=== PATIENT | female | born 1950 | race Caucasian/White ===

== ENCOUNTER 2018-11-17 10:39 | Emergency (ER) | payer OTHER ==
--- OUTSIDE RECORDS SUMMARY | 2018-11-17 10:41 | XMS REPORT | Clinical Summary ---
:1950 Author Organization [facility] Address [address] [place] [address] Care Team Providers Name Role Phone Dell Vazquez MD Primary Care Provider Allergies No Known Allergies Medications Medication Sig Dispensed Refills Start Date End Date Status ARMOUR THYROID TAKE 1 TABLET 1 11/06/2015 Active 60 mg tablet BY MOUTH EVERY DAY BEFORE BREAKFAST sitaGLIPtin-metf Take 1 tablet 0 Active ormin (JANUMET by mouth daily. XR) 100-1,000 mg tablet, ER multiphase 24 hr ramipril Take 2.5 mg by 0 Active (ALTACE) 2.5 MG mouth daily. capsule ONETOUCH VERIO 0 11/25/2015 Discontinued strip test 9 (Discontinued by strips another clinician) Active Problems No known active problems Encounters Date Type Specialty Care Team Description 08/25/2018 Surgery Gastroenterology Augie Hubbardw/sergio Waldron MD removal 08/25/2018 Anesthesia Event Gastroenterology Ruma Morel MD 08/25/2018 Hospital Encounter Gastroenterology Augie Hubbard MD after 11/16/2017 Family History Medical History Relation Name Comments Cancer Father Johnny cullen colon cancer Osteoporosis Mother Bella cullen Relation Name Status Comments Father Johnny cullen Mother Bella cullen Social History Tobacco Use Types Packs/Day Years Used Date Never Smoker Smokeless Tobacco: Never Used Alcohol Use Drinks/Week oz/Week Comments No Sex Assigned at Date Recorded Not on file Job Start Date Occupation Industry Not on file Not on file Not on file Travel History Travel Start Travel End No recent travel history available. Last Filed Vital Signs Vital Sign Reading Time Taken Comments Blood Pressure 136/63 08/25/2018 9:45 AM CDT Pulse 60 08/25/2018 9:45 AM CDT Temperature 36.7 C (98 F) 08/25/2018 9:45 AM CDT Respiratory Rate 18 08/25/2018 9:45 AM CDT Oxygen Saturation 99% 08/25/2018 9:45 AM CDT Inhaled Oxygen Concentration - - Weight - - Height 162.6 cm (5' 4") 08/25/2018 8:01 AM CDT Body Mass Index - - Plan of Treatment Health Maintenance Due Date Last Done Comments BREAST CANCER SCREENING 2002 COLONOSCOPY SCREENING 2002 SHINGLES VACCINES (#1) 2002 65+ PNEUMOCOCCAL VACCINE (1 of 2 - PCV13) 2017 INFLUENZA VACCINE 10/06/2018 Procedures Procedure Name Priority Date/Time Associated Comments Diagnosis SURGICAL PATHOLOGY Routine 08/25/2018 11:15 Results for this REQUEST AM CDT procedure are in the results section. POC GLUCOSE Routine 08/25/2018 9:24 Results for this AM CDT procedure are in the results section. COLONOSCOPY 08/25/2018 8:55 Special screening AM CDT for malignant neoplasms, colon POC GLUCOSE Routine 08/25/2018 8:14 Results for this AM CDT procedure are in the results section. after 11/16/2017 Results Surgical pathology request (08/25/2018 11:15 AM CDT) [facility] DEPARTMENT OF PATHOLOGY AND GENOMIC MEDICINE Surgical pathology See link below [facility] DEPARTMENT OF report for PDF Lab PATHOLOGY AND Report GENOMIC MEDICINE Result status This is Final [facility] DEPARTMENT OF Report for PATHOLOGY AND [id number] GENOMIC MEDICINE Specimen Performing Organization Address City/[facility] Phone Number [facility] DEPARTMENT OF PATHOLOGY AND [address] [place] [id number] GENOMIC MEDICINE POC glucose (08/25/2018 9:24 AM CDT)Only the most recent of2 resultswithin the time period is included. 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
--- NOTE | 2018-11-17 14:36 | RAD REPORT ---
EXAM DESCRIPTION: US - Abdomen Exam Limited - 11/17/2018 2:29 pm CLINICAL HISTORY: ABD PAIN COMPARISON: No comparisons FINDINGS: The gallbladder demonstrates no gallstones. No pericholecystic fluid or gallbladder wall t hickening. The common bile duct is normal measuring 5 mm. The liver demonstrates no findings of intrahepatic biliary dilatation. IMPRESSION: Unremarkable examination.
[2018-11-17 15:06] LABS: Basophils % 0.7 % (0-1.3); Hematocrit 43.4 % (36.0-45.0); Lymphocytes % 30.8 % (15.3-44.8)
[2018-11-17 15:18] LABS: Urine Blood NEGATIVE (NEG); Urine Glucose NEGATIVE (NEG); Urine Protein NEGATIVE (NEG)
--- NOTE | 2018-11-17 15:19 | RAD REPORT ---
EXAM DESCRIPTION: CT - Stone Protocol - 11/17/2018 2:49 pm CLINICAL HISTORY: Abdominal pain. Right flank pain COMPARISON: None. TECHNIQUE: Computed axial tomography of the abdomen pelvis was obtained without oral or IV contrast. Lack of IV and oral contrast limits evaluation of solid organs, bowel, and vessels. Coronal reformat esteban images were obtained and reviewed. All CT scans are performed using dose optimization technique as appropriate and may include automated exposure control or mA/KV adjustment according to patient size. FINDINGS: Moderate right hydronephrosis. A renal calculus is not seen. A 9 millimeter calculus proxi mal right ureter Hounsfield unit 1430. The liver appears grossly normal Splenic granulomata Pancreas and adrenals appear grossly normal There is no evidence of diverticulitis. The appendix appears normal Disc space narrowing and vacuum phenomena at L5-S1. Minimal posterior subluxation L5 on S1 with osteo phytes subchondral sclerosis involving the vertebral endplates Small umbilical hernia 12 millimeter lucency with a sclerotic border within the left ilium likely benign A small left posterior diaphragmatic hernia contains fat IMPRESSION: 9 millimeter calculus proximal right ureter resulting in moderate right hydronephrosis
[2018-11-17 15:37] LABS: Albumin 4.4 g/dL (3.4-5.0); Bilirubin Direct 0.1 mg/dL (0-0.2); Bilirubin Total 0.5 mg/dL (0.2-1.0); Potassium 3.7 mmol/L (3.5-5.1)
[2018-11-17] MEDS ORDERED: TAMSULOSIN 0.4 MG SR CAP ONE (15:56)
[2018-11-17] MEDS ORDERED: KETOROLAC 30 MG/ML INJ ONE (15:56)
[2018-11-17] MEDS ORDERED: MAGNESIUM SULFATE 1 gm IVPB 1 GM/100 ML BAG IV ONE (15:56)
[2018-11-17] MEDS ORDERED: CEFTRIAXONE/SWI 1gm 1 GM/10 ML SYR ONE (16:39)
--- NOTE | 2018-11-17 16:49 | ER ---
Nurse's Notes [facility] Name: Joana Garcia Age: 68 yrs Sex: Female : 1950 Arrival Date: 11/17/2018 Time: 10:41 Bed 30 Private MD: Olivia Vazquez C Diagnosis: Calculus of ureter-right Presentation: 11/17 11:05 Presenting complaint: Patient states: pain in right side, under ribs, 2 nights ago was iw severe, not as bad now, denies n/v, no fever. Transition of care: patient was not received from another setting of care. Onset of symptoms was November 13, 2018. Risk Assessment: Do you want to hurt yourself or someone else? Patient reports no desire to harm self or others. Initial Sepsis Screen: Does the patient meet any 2 criteria? No. Patient's initial sepsis screen is negative. Does the patient have a suspected source of infection? No. Patient's initial sepsis screen is negative. Care prior to arrival: None. 11:05 Method Of Arrival: Ambulatory iw 11:05 Acuity: CAIO 3 iw Historical: - Allergies: 11:07 No Known Allergies; iw - Home Meds: 11:07 levothyroxine oral [Active]; Janumet oral oral [Active]; Ramipril Oral [Active]; iw - PMHx: 11:07 Hypothyroidism; Hypertension; Diabetes - NIDDM; iw - PSHx: 11:07 Hysterectomy; rectal sphincter; cystocele; Hernia repair; iw - Immunization history:: Adult Immunizations Adult Immunizations not up to date. - Social history:: Smoking status: Patient/guardian denies using tobacco. - Ebola Screening: : Patient negative for fever greater than or equal to 101.5 degrees Fahrenheit, and additional compatible Ebola Virus Disease symptoms Patient denies exposure to infectious person Patient denies travel to an Ebola-affected area in the 21 days before illness onset No symptoms or risks identified at this time. Screenin:35 Abuse screen: Denies threats or abuse. Nutritional screening: No deficits noted. tr5 Tuberculosis screening: No symptoms or risk factors identified. Fall Risk None identified. Assessment: 14:35 General: Appears uncomfortable, Behavior is calm, cooperative, appropriate for age. tr5 Pain: Complains of pain in right lower quadrant Pain radiates to right low back Pain currently is 3 out of 10 on a pain scale. Quality of pain is described as aching, shooting, Pain began 1 day ago. Neuro: Level of Consciousness is awake, alert, obeys commands, Oriented to person, place, time, Director Information are equal bilaterally Moves all extremities. Cardiovascular: Heart tones present Capillary refill < 3 seconds. Respiratory: Airway is patent Respiratory effort is even, unlabored, Respiratory pattern is regular, symmetrical. GI: Bowel sounds present X 4 quads. Abd is soft Abdomen is tender to palpation in right lower quadrant. : No signs and/or symptoms were reported regarding the genitourinary system. EENT: No signs and/or symptoms were reported regarding the EENT system. Derm: No signs and/or symptoms reported regarding the dermatologic system. Skin is intact, Skin is dry, Skin is normal. Musculoskeletal: Capillary refill < 3 seconds, Range of motion: intact in all extremities, 15:00 Reassessment: Patient appears in no apparent distress at this time. Patient and/or tr5 family updated on plan of care and expected duration. Pain level reassessed. Patient is alert, oriented x 3, equal unlabored respirations, skin warm/dry/pink. 16:08 Reassessment: Patient and/or family updated on plan of care and expected duration. Pain tr5 level reassessed. Patient is alert, oriented x 3, equal unlabored respirations, skin warm/dry/pink. Pt sitting in bed watching tv. 17:00 Reassessment: Patient appears in no apparent distress at this time. Patient and/or tr5 family updated on plan of care and expected duration. Pain level reassessed. Patient is alert, oriented x 3, equal unlabored respirations, skin warm/dry/pink. Patient states feeling better. Vital Signs: 11:08 BP 149 / 67; Pulse 72; Resp 16; Temp 98.2; Pulse Ox 98% on R/A; Weight 83.46 kg; Height iw 5 ft. 3 in. (160.02 cm); Pain 3/10; 14:30 BP 136 / 76; Pulse 76; Resp 15; Pulse Ox 99% on R/A; tr5 15:30 BP 138 / 70; Pulse 70; Resp 16; Pulse Ox 100% on R/A; tr5 16:32 BP 140 / 70; Pulse 78; Resp 15; Pulse Ox 99% on R/A; tr5 11:08 Body Mass Index 32.59 (83.46 kg, 160.02 cm) iw ED Course: 10:41 Patient arrived in ED. as 10:41 Olivia Vazquez MD is Private Physician. as 11:06 Triage completed. iw 11:08 Arm band placed on. iw 13:50 Greg Grimes PA is PHCP. cp 13:50 Louann Layton MD is Attending Physician. cp 14:12 Mathew Nails RN is Primary Nurse. tr5 14:30 Inserted saline lock: 20 gauge in right antecubital area, using aseptic technique. tr5 14:31 US Abdomen Limited In Process Unspecified. EDMS 14:35 Bed in low position. Call light in reach. Side rails up X 1. tr5 14:39 Initial lab(s) drawn, by me, sent to lab. tr5 14:[address] via wheelchair. tr5 14:49 CT Stone Protocol In Process Unspecified. EDMS 16:48 Jerri Luz MD is Referral Physician. cp 17:33 XRAY KUB In Process Unspecified. EDMS 17:54 No provider procedures requiring assistance completed. IV discontinued. tr5 Administered Medications: 16:07 Drug: Flomax 0.4 mg Route: PO; tr5 17:03 Follow up: Response: No adverse reaction tr5 16:07 Drug: TORadol - Ketorolac 15 mg Route: IVP; Site: right antecubital; tr5 17:04 Follow up: Response: Pain is decreased tr5 16:08 Drug: Magnesium Sulfate 1 grams Route: IVPB; Infused Over: 1 hrs; Site: right tr5 antecubital; 17:04 Follow up: Response: No adverse reaction; IV Status: Completed infusion; IV Intake: tr5 100ml 17:01 Drug: Rocephin 1 grams Route: IV; Rate: bolus; Site: right antecubital; tr5 Intake: 17:04 IV: 100ml; Total: 100ml. tr5 Outcome: 16:49 Discharge ordered by . cp 17:54 Discharged to home ambulatory. tr5 17:54 Condition: stable 17:54 Discharge instructions given to patient, Instructed on discharge instructions, follow up and referral plans. medication usage, Demonstrated understanding of instructions, follow-up care, medications, Prescriptions given X 4. 17:54 Patient left the ED. tr5 Signatures: Dispatcher [employer] Harika Fonseca Irene, RN RN Greg Day PA PA cp Rodriguez, Tommie, RN RN tr5
--- NOTE | 2018-11-17 16:49 | EDPHYS ---
Physician Documentation [facility] Name: Joana Garcia Age: 68 yrs Sex: Female : 1950 Arrival Date: 11/17/2018 Time: 10:41 Bed 30 Private MD: Olivia Vazquez C ED Physician Louann Layton HPI: 11/17 14:10 This 68 yrs old Female presents to ER via Ambulatory with complaints of cp Abdominal Pain. 14:10 The patient complains of pain in the right flank. The pain radiates to the right low cp back. 14:10 Onset: The symptoms/episode began/occurred 2 day(s) ago. Associated signs and symptoms: cp Pertinent negatives: diarrhea, dysuria, fever, pain radiating to the lower extremities, vomiting. Severity of pain: in the emergency department the pain has improved moderately. Historical: - Allergies: 11:07 No Known Allergies; iw - Home Meds: 11:07 levothyroxine oral [Active]; Janumet oral oral [Active]; Ramipril Oral [Active]; iw - PMHx: 11:07 Hypothyroidism; Hypertension; Diabetes - NIDDM; iw - PSHx: 11:07 Hysterectomy; rectal sphincter; cystocele; Hernia repair; iw - Immunization history:: Adult Immunizations Adult Immunizations not up to date. - Social history:: Smoking status: Patient/guardian denies using tobacco. - Ebola Screening: : Patient negative for fever greater than or equal to 101.5 degrees Fahrenheit, and additional compatible Ebola Virus Disease symptoms Patient denies exposure to infectious person Patient denies travel to an Ebola-affected area in the 21 days before illness onset No symptoms or risks identified at this time. ROS: 14:15 Constitutional: Negative for body aches, chills, fever, poor PO intake. cp 14:15 Eyes: Negative for injury, pain, redness, and discharge. cp 14:15 ENT: Negative for drainage from ear(s), ear pain, sore throat, difficulty swallowing, difficulty handling secretions. 14:15 Cardiovascular: Negative for chest pain, palpitations. 14:15 Respiratory: Negative for cough, shortness of breath, wheezing. 14:15 Abdomen/GI: Positive for abdominal pain, of the right lower quadrant, Negative for vomiting, diarrhea, constipation, black/tarry stool, rectal bleeding. 14:15 Back: Positive for radiated pain, of the right low back. 14:15 : Positive for flank pain, Negative for urinary symptoms. 14:15 Skin: Negative for rash. 14:15 Neuro: Negative for altered mental status, headache, weakness. 14:15 All other systems are negative. Exam: 14:20 Constitutional: The patient appears in no acute distress, alert, awake, non-toxic, well cp developed, well nourished. 14:20 Head/Face: Normocephalic, atraumatic. cp 14:20 Eyes: Periorbital structures: appear normal, Conjunctiva: normal, no exudate, no cp injection, Sclera: no appreciated abnormality, Lids and lashes: appear normal, bilaterally. 14:20 ENT: External ear(s): are unremarkable, Nose: is normal, Mouth: Lips: moist, Oral mucosa: pink and intact, moist, Posterior pharynx: is normal, airway is patent, no erythema, no exudate. 14:20 Chest/axilla: Inspection: normal, Palpation: is normal, no crepitus, no tenderness. 14:20 Cardiovascular: Rate: normal, Rhythm: regular, Edema: is not appreciated, JVD: is not appreciated. 14:20 Respiratory: the patient does not display signs of respiratory distress, Respirations: normal, no use of accessory muscles, no retractions, no splinting, no tachypnea, labored breathing, is not present, Breath sounds: are clear throughout, no decreased breath sounds, no stridor, no wheezing. 14:20 Abdomen/GI: Inspection: abdomen appears normal, Bowel sounds: active, all quadrants, Palpation: soft, in all quadrants, mild abdominal tenderness, in the anterior aspect of right lateral abdomen and right lower quadrant, rebound tenderness, is not appreciated, voluntary guarding, is not appreciated, involuntary guarding, is not appreciated. 14:20 Back: pain, that is mild, of the right low back, ROM is normal, CVA tenderness, is absent. 14:20 Skin: no rash present. Vital Signs: 11:08 BP 149 / 67; Pulse 72; Resp 16; Temp 98.2; Pulse Ox 98% on R/A; Weight 83.46 kg; Height iw 5 ft. 3 in. (160.02 cm); Pain 3/10; 14:30 BP 136 / 76; Pulse 76; Resp 15; Pulse Ox 99% on R/A; tr5 15:30 BP 138 / 70; Pulse 70; Resp 16; Pulse Ox 100% on R/A; tr5 16:32 BP 140 / 70; Pulse 78; Resp 15; Pulse Ox 99% on R/A; tr5 11:08 Body Mass Index 32.59 (83.46 kg, 160.02 cm) iw MDM: 13:58 Patient medically screened. cp 16:00 Differential diagnosis: nephrolithiasis, pyelonephritis, UTI, diverticulitis, cp appendicitis, colitis. 16:30 Physician consultation: Jerri Luz MD was called at 16:00, was contacted at 16:30, regarding consult, patient's condition, and will see patient in office, tomorrow, wants KUB xray for follow-up visit tomorrow. 16:48 Data reviewed: vital signs, nurses notes, lab test result(s), radiologic studies, CT cp scan, and as a result, I will discharge patient. 16:48 Counseling: I had a detailed discussion with the patient and/or guardian regarding: the cp historical points, exam findings, and any diagnostic results supporting the discharge/admit diagnosis, lab results, radiology results, the need for outpatient follow up, for definitive care, a urologist. 16:48 Response to treatment: the patient's symptoms have markedly improved after treatment, cp and as a result, I will discharge patient. 11/17 13:58 Order name: Basic Metabolic Panel; Complete Time: 15:47 cp 11/17 13:58 Order name: CBC with Diff; Complete Time: 15:23 11/17 15:23 Interpretation: Normal except: RBC 4.90. 11/17 13:58 Order name: Creatinine for Radiology; Complete Time: 15:47 cp 11/17 13:58 Order name: Hepatic Function; Complete Time: 15:47 cp 11/17 13:58 Order name: Lipase; Complete Time: 15:47 cp 11/17 13:59 Order name: Urine Microscopic Only; Complete Time: 17:43 cp 11/17 17:44 Interpretation: Reviewed. 11/17 13:35 Order name: US Abdomen Limited; Complete Time: 15:23 snw 11/17 14:31 Order name: CT Stone Protocol; Complete Time: 15:23 cp 11/17 15:24 Interpretation: Report reviewed. 11/17 14:59 Order name: Urine Dipstick--Ancillary (enter results); Complete Time: 15:23 bd 11/17 16:28 Order name: Urine Culture 11/17 16:28 Order name: XRAY KUB 11/17 13:58 Order name: IV Saline Lock; Complete Time: 14:47 cp 11/17 13:58 Order name: Labs collected and sent; Complete Time: 14:47 11/17 13:59 Order name: Urine Dipstick-Ancillary (obtain specimen); Complete Time: 14:47 cp Administered Medications: 16:07 Drug: Flomax 0.4 mg Route: PO; tr5 17:03 Follow up: Response: No adverse reaction tr5 16:07 Drug: TORadol - Ketorolac 15 mg Route: IVP; Site: right antecubital; tr5 17:04 Follow up: Response: Pain is decreased tr5 16:08 Drug: Magnesium Sulfate 1 grams Route: IVPB; Infused Over: 1 hrs; Site: right tr5 antecubital; 17:04 Follow up: Response: No adverse reaction; IV Status: Completed infusion; IV Intake: tr5 100ml 17:01 Drug: Rocephin 1 grams Route: IV; Rate: bolus; Site: right antecubital; tr5 Disposition: 18:44 Co-signature as Attending Physician, Louann Layton MD. ma2 Disposition: 11/17/18 16:49 Discharged to Home. Impression: Calculus of ureter - right. - Condition is Stable. - Discharge Instructions: Kidney Stones. - Prescriptions for Tylenol- Codeine #3 300-30 mg Oral Tablet - take 2 tablets by ORAL route every 6 hours As needed; 15 tablet. Zofran 4 mg Oral Tablet - take 1 tablet by ORAL route every 12 hours As needed; 20 tablet. Flomax 0.4 mg Oral Capsule, Sust. Release 24 hr - take 1 capsule by ORAL route once daily 1/2 hour following the same meal each day; 5 capsule. Cipro 500 mg Oral Tablet - take 1 tablet by ORAL route every 12 hours for 7 days; 14 tablet. - Medication Reconciliation Form, Thank You Letter, Antibiotic Education, Prescription Opioid Use form. - Follow up: Jerri Luz MD; When: at 0800; Reason: Recheck today's complaints. - Problem is new. - Symptoms have improved. Signatures: Dispatcher [employer] Adenike Glez RN RN Greg Day PA PA cp Alzahri, Mohammad, MD MD ma2 Mathew Nails RN RN tr5 Corrections: (The following items were deleted from the chart) 17:54 16:49 11/17/2018 16:49 Discharged to Home. Impression: Calculus of ureter - right. tr5 Condition is Stable. Forms are Medication Reconciliation Form, Thank You Letter, Antibiotic Education, Prescription Opioid Use. Follow up: Jerri Luz; When: at 0800; Reason: Recheck today's complaints. Problem is new. Symptoms have improved. cp
[2018-11-17 17:29] LABS: Urine Bacteria <20 /HPF (<20); Urine Culture Reflex Order NOT NEEDED; Urine RBC <5 /HPF (NONE SEEN)
--- NOTE | 2018-11-17 18:08 | RAD REPORT ---
EXAM DESCRIPTION: RAD - Abdomen 1 View (KUB) - 11/17/2018 5:29 pm CLINICAL HISTORY: Abdomen pain. FINDINGS: The bowel gas pattern is unremarkable. 9 millimeter calculus lies within the proximal to mid right ureter at the L3-4 level
[2018-11-17 18:18] VITALS: TEMP 98.2
[2018-11-17 18:22] VITALS: BP 140/70; O2SAT 99
== END 2018-11-17 17:54 | disposition home or self-care (01) ==
LOC: ER 10:39
DX: N20.0 Calculus of kidney (principal); E03.9 Hypothyroidism, unspecified; E11.9 Type 2 diabetes mellitus without complications; I10 Essential (primary) hypertension
CPT/HCPCS: 96365; 87088; 85025; 80048; 36415; 80076; 83690; 76377; 74176; 74018; 76705; 96375; 99284; J3475; J0696; 81003; 81015; 87086

== ENCOUNTER 2022-06-09 18:41 | Observation (INO) | payer OTHER ==
[~2022-06-09 18:41] MED LIST: REGADENOSON 0.4 MG/5 ML SYR IV ONE
--- OUTSIDE RECORDS SUMMARY | 2022-06-09 18:46 | XMS REPORT | Continuity of Care Document ---
:1950 Author Organization [facility] t Address [address] [place] [address] [place] [id number] Care Team Providers Name Role Phone Dell Vazquez Get Primary Care Physician Haritha Attending Clinician Unavailable GT_Get Attending Clinician Unavailable aHrsh Attending Clinician Unavailable Biju Attending Clinician Unavailable Kg Ibrahim MD Attending Clinician CATHERINE DOMÍNGUEZ Attending Clinician Unavailable Deepak Meraz Attending Clinician [phone] Juan Attending Clinician Unavailable Augie Hubbard MD Attending Clinician JENNIFER MATHEWS Attending Clinician Unavailable [facility] Attending Clinician Unavailable Lor Fay RN Attending Clinician Unavailable Dexter Rocha PA-C Attending Clinician DEXTER ROCHA Attending Clinician Unavailable Haritha Admitting Clinician Unavailable SISSON_Get Admitting Clinician Unavailable Harsh Admitting Clinician Unavailable Biju Admitting Clinician Unavailable Juan Admitting Clinician Unavailable Payers Payer Name Policy Type Policy Number Effective Date Expiration Date Brendon griffith [facility] [id number] 2018 00:00:00 [facility] [id number] 2018 HEALTHCARE (O) 00:00:00 [facility] [id number] [facility] [id number] 2022 (PPO) 00:00:00 [facility] [id number] 2013 SERVICES - [place] 00:00:00 HEALTHCARE OPTIONS (PPO) [facility] [id number] SERVICES - [facility] (PPO) Problems Condition Condition Condition Status Onset Resolution Last Treating Co mments Source Name Details Category Date Date Treatment Clinician Date Osteoarthr Osteoarthr Problem Active Olivia willis itis of itis of 1-20 [facility] right knee Right Knee 00:00: di c joint Joint 00 Sports Medicin e Trochanter Trochanter Problem Active A linlea ic ic 1-19 Orthope bursitis Bursitis 00:00: dic of right of Right 00 Sports hip Hip Medicin e Pain of Pain of Problem Active [facility] right knee Right Knee 1-19 Or thope joint Joint 00:00: dic 00 Sports Medicin e Pain in Pain in Problem Active [facility] pelvis Pelvis 1-19 Orthope 00:00: dic 00 Sports Medicin e Type 2 Type 2 Problem Active [facility] diabetes Diabetes 5-20 Family mellitus Mellitus 00:00: Practi c 00 e Body mass Body Mass Problem Active Susie diane index 30+ Index 30+ 5-20 Fami ly - obesity - Obesity 00:00: Prac tic 00 e Essential Essential Problem Active Susie valdiviae hypertensi Hypertensi 1-21 Fa angel on on 00:00: Practic 00 e Hypertensi Hypertensi Problem Active [facility] ve ve 1-21 Family disorder Disorder 00:00: Practi c 00 e Hypocalcem Hypocalcem Problem Active [facility] ia ia 8 Family 00:00: Practic 00 e Leukopenia Leukopenia Problem Active [facility] 8-28 Family 00:00: Practic 00 e White White Problem Active [facility] blood cell Blood Cell 8-28 Fa angel number - Number - 00:00: Practi c finding Finding 00 e Obesity Obesity Problem Active [facility] 3-28 Family 00:00: Practic 00 e Clinical Clinical Problem Active Ferreira ge finding Finding 3-28 Family 00:00: Practic 00 e Hypothyroi Hypothyroi Problem Active [facility] dism dism 12-04 Family 00:00: Practic 00 e Type 2 Type 2 Problem Active [facility] diabetes Diabetes 12-04 Family mellitus Mellitus 00:00: Practi c without without 00 e complicati Complicati on on Hyperlipid Hyperlipid Problem Active [facility] emmonik emia 12-04 Family 00:00: Practic 00 e Clinical Clinical Problem Active Ferreira ge finding Finding 12-04 Family 00:00: Practic 00 e No known No known Disease [facility] active active Health problems problems Uterine Uterine Problem Active [facility] leiomyoma Leiomyoma [facility] Midline Midline Problem Active [facility] cystocele Cystocele [facility] Herniation Herniation Problem Active [facility] of rectum of Rectum Medi regis into into vagina Vagina Uterovagin Uterovagin Problem Active [facility] al al Medical prolapse Prolapse Female Female Problem Active [facility] stress Stress Medical incontinen Incontinen ce ce Incontinen Incontinen Problem Active [facility] ce of ce of Medical feces Feces Incomplete Incomplete Problem Active [facility] passage of Passage of Me dical stool Stool Dysuria Dysuria Problem Active [facility] Medical Allergies, Adverse Reactions, Alerts Allergy Allergy Status Severity Reaction(s) Onset Inactive Treating Comm ents Source Name Type Date Date Clinician Sulfa Allergy Active Hives [facility] Antibiot to 6-15 Health ics substanc 00:00: e 00 Sulfa Propensi Active Hives [facility] (Sulfona ty to 6-15 st mide adverse 00:00: Hospita Antibiot reaction 00 l ics) s to drug PAPER Allergy Active [facility] TAPE to 4-18 Orthope substanc 00:00: dic e 00 Sports Medicin e NO KNOWN Drug Active [facility] ALLERGIE Class ity of S [facility] Atorvast Allergy Active Arthralgia Susie diane atin to (joint pain) Fami ly substanc Practic e e Clindamy Allergy Active [facility] quentin to Family substanc Practic e e Predniso Allergy Active Moderate Rash Ferreira ge ne to Family substanc Practic e e SULFA Allergy Active [facility] (SULFONA to Family MIDE substanc Practic ANTIBIOT e e ICS) Family History Family Member Diagnosis Comments Start Date Stop Date Source Natural father Cancer [facility] Natural mother Osteoporosis [facility] Social History Social Habit Start Date Stop Date Quantity Comments Source History SDOH [facility] Alcohol Std Drinks History SDOH [facility] Alcohol Binge History SDOH [facility] Alcohol Comment Exposure to 2021-10-18 2021-10-28 Not sure [facility] SARS-CoV-2 00:00:00 12:28:00 (event) Tobacco use and 2021-05-08 2021-05-08 Smokeless tobacco [facility] exposure 00:00:00 00:00:00 non-user History [facility] 2021-05-08 2021-05-08 1 [facility] Alcohol Frequency 00:00:00 00:00:00 Alcohol intake 2018-08-26 2018-08-26 Current [facility] 00:00:00 00:00:00 non-drinker of Hospital alcohol (finding) Sex Ass[birth year] At [birth year] [facility] 00:00:00 00:00:00 Hospital Smoking Status Start Date Stop Date Source Never Smoker [facility] Medications Ordered Filled Start Stop Current Ordering Indication Dosage Frequency Signature Comments Components Source Medication Medication Date Date Medication? Clinician (SIG) Name Name amlodipine amlodipine No amlodipine [facility] 5 mg tablet 5 mg tablet 7-27 5 mg M edical TAKE 1 TAKE 1 00:00: tablet TABLET BY TABLET BY 00 TAKE 1 MOUTH MOUTH TABLET BY EVERYDAY AT EVERYDAY AT MOUTH BEDTIME BEDTIME EVERYDAY AT BEDTIME cevimeline cevimeline No cevimeline [facility] 30 mg 30 mg 7-27 30 mg Medical capsule capsule 00:00: capsule TAKE 1 TAKE 1 00 TAKE 1 CAPSULE BY CAPSULE BY CAPSULE BY MOUTH THREE MOUTH THREE MOUTH TIMES A DAY TIMES A DAY THREE TIMES A DAY Janumet XR Janumet XR No Janumet XR [facility] 100 100 7-27 100 Medical mg-1,000 mg mg-1,000 mg 00:00: mg-1,000 tablet,exte tablet,exte 00 mg nded nded tablet,ext release release ended TAKE 1 TAKE 1 release TABLET BY TABLET BY TAKE 1 MOUTH EVERY MOUTH EVERY TABLET BY DAY WITH DAY WITH MOUTH EVENING EVENING EVERY DAY MEAL MEAL WITH EVENING MEAL levothyroxi levothyroxi No levothyrox [facility] ne 75 mcg ne 75 mcg 7-27 ine 75 mcg Medical tablet TAKE tablet TAKE 00:00: tablet 1 TABLET BY 1 TABLET BY 00 TAKE 1 MOUTH EVERY MOUTH EVERY TABLET BY DAY DAY MOUTH EVERY DAY ramipril 10 ramipril 10 0 No ramipril [facility] mg capsule mg capsule 7-27 10 mg Me dical TAKE 1 TAKE 1 00:00: capsule CAPSULE BY CAPSULE BY 00 TAKE 1 MOUTH EVERY MOUTH EVERY CAPSULE BY DAY DAY MOUTH EVERY DAY rosuvastati rosuvastati 0 No rosuvastat [facility] n 5 mg n 5 mg 7-27 in 5 mg Medical tablet TAKE tablet TAKE 00:00: tablet 1 TABLET BY 1 TABLET BY 00 TAKE 1 MOUTH TWO MOUTH TWO TABLET BY TIMES A TIMES A MOUTH TWO WEEK. WEEK. TIMES A WEEK. ramipril 2021-0 Yes [facility] (Altace) 10 2-25 Health MG capsule 00:00: 00 pramipexole 2021-0 Yes [facility] (Mirapex) 2-25 Health 0.25 MG 00:00: tablet 00 ramipril 2021-0 Yes UT (Altace) 10 2-25 Health MG capsule 00:00: 00 pramipexole 2021-0 Yes [facility] (Mirapex) 2-25 Health 0.25 MG 00:00: tablet 00 ramipril 2021-0 Yes UT (Altace) 10 2-25 Health MG capsule 00:00: 00 pramipexole 2021-0 Yes UT (Mirapex) 2-25 Health 0.25 MG 00:00: tablet 00 ramipril 2021-0 Yes UT (Altace) 10 2-25 Health MG capsule 00:00: 00 pramipexole 2021-0 Yes UT (Mirapex) 2-25 Health 0.25 MG 00:00: tablet 00 Synjardy XR 2-0 Yes UT 25-1000 MG 2-23 Health 24 hr 00:00: tablet 00 Synjardy XR 2-0 Yes UT 25-1000 MG 2-23 Health 24 hr 00:00: tablet 00 Synjardy XR 2-0 Yes UT 25-1000 MG 2-23 Health 24 hr 00:00: tablet 00 Synjardy XR 2-0 Yes UT 25-1000 MG 2-23 Health 24 hr 00:00: tablet 00 amLODIPine 2021-0 Yes 5mg Take 5 mg [facility] (Norvasc) 5 1-27 by mouth Heal th MG tablet 00:00: every 00 night. amLODIPine 2021-0 Yes 5mg Take 5 mg UT (Norvasc) 5 1-27 by mouth Heal th MG tablet 00:00: every 00 night. amLODIPine 2-0 Yes 5mg Take 5 mg [facility] (Norvasc) 5 1-27 by mouth Heal th MG tablet 00:00: every 00 night. amLODIPine 2022-0 Yes 5mg Take 5 mg UT (Norvasc) 5 1-27 by mouth Heal th MG tablet 00:00: every 00 night. rosuvastati 2022-0 Yes 5mg Take 5 mg U T n (Crestor) 1-26 by mouth Heal th 5 MG tablet 00:00: every 00 night. rosuvastati 2022-0 Yes 5mg Take 5 mg U T n (Crestor) 1-26 by mouth Heal th 5 MG tablet 00:00: every 00 night. rosuvastati 2022-0 Yes 5mg Take 5 mg U T n (Crestor) 1-26 by mouth Heal th 5 MG tablet 00:00: every 00 night. rosuvastati 2022-0 Yes 5mg Take 5 mg U T n (Crestor) 1-26 by mouth Heal th 5 MG tablet 00:00: every 00 night. levothyroxi 202-0 Yes 75ug QD Take 75 UT ne 1-25 mcg by Health (Synthroid, 00:00: mouth 1 Levoxyl) 75 00 (one) time MCG tablet each day. levothyroxi 2021-0 Yes 75ug QD Take 75 UT ne 1-25 mcg by Health (Synthroid, 00:00: mouth 1 Levoxyl) 75 00 (one) time MCG tablet each day. levothyroxi 2022-0 Yes 75ug QD Take 75 UT ne 1-25 mcg by Health (Synthroid, 00:00: mouth 1 Levoxyl) 75 00 (one) time MCG tablet each day. levothyroxi 2-0 Yes 75ug QD Take 75 UT ne 1-25 mcg by Health (Synthroid, 00:00: mouth 1 Levoxyl) 75 00 (one) time MCG tablet each day. cevimeline 2020-03 Yes 30mg [id number] Take 30 mg UT (Evoxac) 30 1-28 [id number] by mouth 3 Health MG capsule 00:00: 3D (three) 00 times a day. cevimeline 2020-03 Yes 30mg [id number] Take 30 mg UT (Evoxac) 30 1- [id number] by mouth 3 Health MG capsule 00:00: 3D (three) 00 times a day. cevimeline 2020-03 Yes 30mg [id number] Take 30 mg UT (Evoxac) 30 1- [id number] by mouth 3 Health MG capsule 00:00: 3D (three) 00 times a day. cevimeline 2020-03 Yes 30mg [id number] Take 30 mg UT (Evoxac) 30 1- [id number] by mouth 3 Health MG capsule 00:00: 3D (three) 00 times a day. conjugated Yes Premarin [facility] estrogens 6-[address] (Premarin) 11:38: mg/gram [facility]osp [facility] 0.625 42 vaginal l mg/gram cream vaginal cream cevimeline Yes cevimeline M [facility]i (EVOXAC) 30 6-[address] mg capsule 11:38: capsule [facility]osp [facility] 41 l rosuvastati Yes rosuvastat [facility] n (CRESTOR) 6-[address] 5 mg tablet 11:38: tablet [facility]osp [facility] 41 TAKE 1 l TABLET BY MOUTH EVERYDAY AT BEDTIME ramipriL Yes ramipril Metho di (ALTACE) 10 6-[address] MG capsule 11:38: capsule [facility]osp [facility] 41 TAKE 1 l CAPSULE BY MOUTH EVERY DAY levoFLOXaci 2020- No levofloxac Univers n 750 mg 09-06 07-02 in 750 mg ity o f tablet 13:45: 00:00 tablet [place] 38 :00 TAKE 1 Medical TABLET BY Branch MOUTH EVERY 24 HOURS FOR 5 DAYS conjugated Yes Premarin Uni vers estrogens 7-02 0.625 ity of (PREMARIN) 13:28: mg/gram [place] 0.625 49 vaginal Medical mg/gram cream Branch vaginal cream ramipril Yes 2.5mg Take 2.5 Univ ers 2.5 mg 7-02 mg by ity of capsule 13:28: mouth. [place] 49 Medical Branch conjugated Yes Premarin Uni vers estrogens 7-02 0.625 ity of (PREMARIN) 13:28: mg/gram [place] 0.625 49 vaginal Medical mg/gram cream [place] vaginal cream ramipril 2019-0 Yes 2.5mg Take 2.5 Univ ers 2.5 mg 7-02 mg by ity of capsule 13:28: mouth. [address] conjugated 2019-0 Yes Premarin Uni vers estrogens 7-02 0.625 ity of (PREMARIN) 13:28: mg/gram [place] 0.625 49 vaginal Medical mg/gram cream [place] vaginal cream ramipril 2019-0 Yes 2.5mg Take 2.5 Univ ers 2.5 mg 7-02 mg by ity of capsule 13:28: mouth. [address] levothyroxi Yes 75ug Take 75 Uni vers ne 75 mcg 6-18 mcg by ity of tablet 00:00: mouth. [address] levothyroxi 0 Yes 75ug Take 75 Uni vers ne 75 mcg 6-18 mcg by ity of tablet 00:00: mouth. [address] levothyroxi Yes 75ug Take 75 Uni vers ne 75 mcg 6-18 mcg by ity of tablet 00:00: mouth. [address] levothyroxi Yes levothyrox [facility] ne 6-[address] (SYNTHROID) 00:00: tablet [facility]osp [facility] 75 mcg 00 TAKE 1 l tablet TABLET BY MOUTH EVERY DAY JANUMET XR 2019- Yes TAKE 1 Unive rs 100-1,000 4-25 TABLET BY ity o f mg per 00:00: MOUTH [place] tablet 00 EVERY DAY Medical WITH Branch EVENING MEAL JANUMET XR 2019- Yes TAKE 1 Unive rs 100-1,000 4-25 TABLET BY ity o f mg per 00:00: MOUTH [place] tablet 00 EVERY DAY Medical WITH Branch EVENING MEAL JANUMET XR 2019- Yes TAKE 1 Unive rs 100-1,000 4-25 TABLET BY ity o f mg per 00:00: MOUTH [place] tablet 00 EVERY DAY Medical WITH Branch EVENING MEAL SITagliptin Yes Janumet XR [facility] -metformin 4-[address] (Janumet 00:00: mg-1,000 Hospi ta XR) 00 mg l 100-1,000 tablet,ext mg tablet, ended ER release multiphase TAKE 1 24 hr TABLET BY MOUTH EVERY DAY sitaGLIPtin Yes 1{tbl} QD Take 1 Me thodi -metformin 6-[address] (MARUMET 10:10: mouth Hospita XR) 29 daily. l 100-1,000 mg tablet, ER multiphase 24 hr ramipril Yes 2.5mg QD Take 2.5 Meth randi (ALTACE) 6-[address] 2.5 MG 10:10: mouth Hospita capsule 29 daily. l etodolac ER etodolac ER No etodolac [facility] 400 mg 400 mg 3-06 ER 400 mg Orthop e tablet,exte tablet,exte 00:00: tablet,ext dic nded nded 00 ended Sports release 24 release 24 release 24 Medicin hr One PO hr One PO hr One PO e per day per day per day with food with food with food etodolac ER etodolac ER No etodolac [facility] 400 mg 400 mg 3-06 ER 400 mg Orthop e tablet,exte tablet,exte 00:00: tablet,ext dic nded nded 00 ended Sports release 24 release 24 release 24 Medicin hr One PO hr One PO hr One PO e per day per day per day with food with food with food ARMOUR Yes TAKE 1 [facility] THYROID 60 8-[address] mg tablet 00:00: MOUTH Hospita 00 EVERY DAY l BEFORE BREAKFAST pramipexole pramipexole No pramipexol [facility] 0.25 mg 0.25 mg e 0.25 mg Orth ope tablet TAKE tablet TAKE tablet dic 1 TABLET BY 1 TABLET BY TAKE 1 Sports MOUTH MOUTH TABLET BY Medicin EVERYDAY AT EVERYDAY AT MOUTH e BEDTIME BEDTIME EVERYDAY AT BEDTIME ramipril 10 ramipril 10 No ramipril [facility] mg capsule mg capsule 10 mg Or thope TAKE 1 TAKE 1 capsule dic CAPSULE BY CAPSULE BY TAKE 1 S ports MOUTH EVERY MOUTH EVERY CAPSULE BY Medicin DAY DAY MOUTH e EVERY DAY rosuvastati rosuvastati No rosuvastat [facility] n 5 mg n 5 mg in 5 mg Orthope tablet TAKE tablet TAKE tablet dic 1 TABLET BY 1 TABLET BY TAKE 1 Sports MOUTH TWO MOUTH TWO TABLET BY Medicin TIMES A TIMES A MOUTH TWO e WEEK. WEEK. TIMES A WEEK. Synjardy XR Synjardy XR No Synjardy [facility] 25 mg-1,000 25 mg-1,000 XR 25 Orthope mg tablet, mg tablet, mg-1,000 dic extended extended mg tablet, S ports release release extended Medic in TAKE 1 TAKE 1 release e TABLET BY TABLET BY TAKE 1 MOUTH EVERY MOUTH EVERY TABLET BY DAY IN THE DAY IN THE MOUTH MORNING MORNING EVERY DAY IN THE MORNING amlodipine amlodipine No amlodipine [facility] 5 mg tablet 5 mg tablet 5 mg O rthope TAKE 1 TAKE 1 tablet dic TABLET BY TABLET BY TAKE 1 Spo rts MOUTH MOUTH TABLET BY Medicin EVERYDAY AT EVERYDAY AT MOUTH e BEDTIME BEDTIME EVERYDAY AT BEDTIME amoxicillin amoxicillin No amoxicilli [facility] 500 mg 500 mg n 500 mg Orthope capsule capsule capsule dic TAKE 1 TAKE 1 TAKE 1 Sports CAPSULE BY CAPSULE BY CAPSULE BY Medicin MOUTH THREE MOUTH THREE MOUTH e TIMES A DAY TIMES A DAY THREE TIMES A DAY cefdinir cefdinir No cefdinir Aza veronica 300 mg 300 mg 300 mg Orthope capsule capsule capsule dic TAKE 1 TAKE 1 TAKE 1 Sports CAPSULE BY CAPSULE BY CAPSULE BY Medicin MOUTH EVERY MOUTH EVERY MOUTH e 12 HOURS 12 HOURS EVERY 12 FOR 10 DAYS FOR 10 DAYS HOURS FOR 10 DAYS clindamycin clindamycin No clindamyci [facility] HCl 300 mg HCl 300 mg n HCl 300 Orth[facility] capsule capsule mg capsule dic TAKE 1 TAKE 1 TAKE 1 Sports CAPSULE BY CAPSULE BY CAPSULE BY Medicin MOUTH EVERY MOUTH EVERY MOUTH e 8 HOURS FOR 8 HOURS FOR EVERY 8 7 DAYS 7 DAYS HOURS FOR 7 DAYS clotrimazol clotrimazol No clotrimazo [facility] e-betametha e-betametha le-betamet Orthope sone 1 sone 1 hasone 1 dic %-0.05 % %-0.05 % %-0.05 % Spo rts topical topical topical Medici n cream APPLY cream APPLY cream e TO AFFECTED TO AFFECTED APPLY TO AREA OF AREA OF AFFECTED SKIN TWO SKIN TWO AREA OF TIMES A DAY TIMES A DAY SKIN TWO FOR TWO FOR TWO TIMES A WEEKS WEEKS DAY FOR TWO WEEKS doxycycline doxycycline No doxycyclin [facility] hyclate 100 hyclate 100 e hyclate Orthope mg capsule mg capsule 100 mg d ic 1 CAPSULE 1 CAPSULE capsule 1 Sports ORALLY ORALLY CAPSULE Medicin TWICE DAILY TWICE DAILY ORALLY e 10 DAY(S) 10 DAY(S) TWICE DAILY 10 DAY(S) fluticasone fluticasone No fluticason [facility] propionate propionate e Ort hope 50 50 propionate dic mcg/actuati mcg/actuati 50 S ports on nasal on nasal mcg/actuat M edicin spray,suspe spray,suspe ion nasal e nsion 2 nsion 2 spray,susp SPRAYS IN SPRAYS IN ension 2 INTO EACH INTO EACH SPRAYS IN NOSTRIL NOSTRIL INTO EACH ONCE DAILY ONCE DAILY NOSTRIL ONCE DAILY Janumet 50 Janumet 50 No Janumet 50 [facility] mg-500 mg mg-500 mg mg-500 mg Orthope tablet RX tablet RX tablet RX dic by other MD by other MD by other Eusebia IQBAL Medicin e Janumet XR Janumet XR No Janumet XR [facility] 100 100 100 Orthope mg-1,000 mg mg-1,000 mg mg-1,000 dic tablet,exte tablet,exte mg S ports nded nded tablet,ext Medicin release release ended e TAKE 1 TAKE 1 release TABLET BY TABLET BY TAKE 1 MOUTH EVERY MOUTH EVERY TABLET BY DAY WITH DAY WITH MOUTH EVENING EVENING EVERY DAY MEAL MEAL WITH EVENING MEAL Levo-T 25 Levo-T 25 No Levo-T 25 [facility] mcg tablet mcg tablet mcg tablet Orthope RX by other RX by other RX by dic MD MD agustin Laws Medicin [place] levothyroxi levothyroxi No levothyrox [facility] ne 75 mcg ne 75 mcg ine 75 mcg Orthope tablet TAKE tablet TAKE tablet dic 1 TABLET BY 1 TABLET BY TAKE 1 Sports MOUTH EVERY MOUTH EVERY TABLET BY Medicin DAY DAY MOUTH e EVERY DAY meloxicam meloxicam No 1 Q1D meloxicam [facility] 15 mg 15 mg 15 mg [facility] tablet Take tablet Take tablet dic 1 tablet 1 tablet Take 1 Sport s every day every day tablet Med icin by oral by oral every day e route. route. by oral route. pramipexole pramipexole No pramipexol [facility] 0.25 mg 0.25 mg e 0.25 mg Orth ope tablet TAKE tablet TAKE tablet dic 1 TABLET BY 1 TABLET BY TAKE 1 Sports MOUTH MOUTH TABLET BY Medicin EVERYDAY AT EVERYDAY AT MOUTH e BEDTIME BEDTIME EVERYDAY AT BEDTIME QuickVue QuickVue No QuickVue Aza veronica At-Home At-Home At-Home Orthop e COVID-19 COVID-19 COVID-19 dic Test kit Test kit Test kit Spo rts USE USE USE Medicin DIRECTED DIRECTED DIRECTED e ramipril 10 ramipril 10 No ramipril [facility] mg capsule mg capsule 10 mg Or thope TAKE 1 TAKE 1 capsule dic CAPSULE BY CAPSULE BY TAKE 1 S ports MOUTH TWICE MOUTH TWICE CAPSULE BY Medicin A DAY A DAY MOUTH e TWICE A DAY rosuvastati rosuvastati No rosuvastat [facility] n 5 mg n 5 mg in 5 mg Orthope tablet TAKE tablet TAKE tablet dic 1 TABLET BY 1 TABLET BY TAKE 1 Sports MOUTH TWO MOUTH TWO TABLET BY Medicin TIMES A TIMES A MOUTH TWO e WEEK. WEEK. TIMES A WEEK. Synjardy XR Synjardy XR No Synjardy [facility] 25 mg-1,000 25 mg-1,000 XR 25 Orthope mg tablet, mg tablet, mg-1,000 dic extended extended mg tablet, S ports release release extended Medic in TAKE 1 TAKE 1 release e TABLET BY TABLET BY TAKE 1 MOUTH EVERY MOUTH EVERY TABLET BY DAY IN THE DAY IN THE MOUTH MORNING MORNING EVERY DAY IN THE MORNING Voltaren Voltaren No Voltaren Aza veronica Arthritis Arthritis Arthritis Orthope Pain 1 % Pain 1 % Pain 1 % dic topical gel topical gel topical Sports APPLY 2 APPLY 2 gel APPLY Medi quentin GRAMS TO GRAMS TO 2 GRAMS TO e THE THE THE AFFECTED AFFECTED AFFECTED AREA(S) BY AREA(S) BY AREA(S) BY TOPICAL TOPICAL TOPICAL ROUTE 4 ROUTE 4 ROUTE 4 TIMES PER TIMES PER TIMES PER DAY DAY DAY amlodipine amlodipine No amlodipine [facility] 5 mg tablet 5 mg tablet 5 mg O rthope TAKE 1 TAKE 1 tablet dic TABLET BY TABLET BY TAKE 1 Spo rts MOUTH MOUTH TABLET BY Medicin EVERYDAY AT EVERYDAY AT MOUTH e BEDTIME BEDTIME EVERYDAY AT BEDTIME amoxicillin amoxicillin No amoxicilli [facility] 500 mg 500 mg n 500 mg Orth[facility] capsule capsule capsule dic TAKE 1 TAKE 1 TAKE 1 Sports CAPSULE BY CAPSULE BY CAPSULE BY Medicin MOUTH THREE MOUTH THREE MOUTH e TIMES A DAY TIMES A DAY THREE TIMES A DAY cefdinir cefdinir No cefdinir Aza veronica 300 mg 300 mg 300 mg Orth[facility] capsule capsule capsule dic TAKE 1 TAKE 1 TAKE 1 Sports CAPSULE BY CAPSULE BY CAPSULE BY Medicin MOUTH EVERY MOUTH EVERY MOUTH e 12 HOURS 12 HOURS EVERY 12 FOR 10 DAYS FOR 10 DAYS HOURS FOR 10 DAYS clindamycin clindamycin No clindamyci [facility] HCl 300 mg HCl 300 mg n HCl 300 [facility] capsule capsule mg capsule dic TAKE 1 TAKE 1 TAKE 1 Sports CAPSULE BY CAPSULE BY CAPSULE BY Medicin MOUTH EVERY MOUTH EVERY MOUTH e 8 HOURS FOR 8 HOURS FOR EVERY 8 7 DAYS 7 DAYS HOURS FOR 7 DAYS clotrimazol clotrimazol No clotrimazo [facility] e-betametha e-betametha le-betamet Orthope sone 1 sone 1 hasone 1 dic %-0.05 % %-0.05 % %-0.05 % Spo rts topical topical topical Medici n cream APPLY cream APPLY cream e TO AFFECTED TO AFFECTED APPLY TO AREA OF AREA OF AFFECTED SKIN TWO SKIN TWO AREA OF TIMES A DAY TIMES A DAY SKIN TWO FOR TWO FOR TWO TIMES A WEEKS WEEKS DAY FOR TWO WEEKS doxycycline doxycycline No doxycyclin [facility] hyclate 100 hyclate 100 e hyclate Orthope mg capsule mg capsule 100 mg d ic 1 CAPSULE 1 CAPSULE capsule 1 Sports ORALLY ORALLY CAPSULE Medicin TWICE DAILY TWICE DAILY ORALLY e 10 DAY(S) 10 DAY(S) TWICE DAILY 10 DAY(S) fluticasone fluticasone No fluticason [facility] propionate propionate e Ort hope 50 50 propionate dic mcg/actuati mcg/actuati 50 S ports on nasal on nasal mcg/actuat M edicin spray,suspe spray,suspe ion nasal e nsion 2 nsion 2 spray,susp SPRAYS IN SPRAYS IN ension 2 INTO EACH INTO EACH SPRAYS IN NOSTRIL NOSTRIL INTO EACH ONCE DAILY ONCE DAILY NOSTRIL ONCE DAILY Janumet 50 Janumet 50 No Janumet 50 [facility] mg-500 mg mg-500 mg mg-500 mg [facility] tablet RX tablet RX tablet RX dic by other MD by other MD by other Sports MD Medicin e Janumet XR Janumet XR No Janumet XR [facility] 100 100 100 [facility]ope mg-1,000 mg mg-1,000 mg mg-1,000 dic tablet,exte tablet,exte mg S ports nded nded tablet,ext Medicin release release ended e TAKE 1 TAKE 1 release TABLET BY TABLET BY TAKE 1 MOUTH EVERY MOUTH EVERY TABLET BY DAY WITH DAY WITH MOUTH EVENING EVENING EVERY DAY MEAL MEAL WITH EVENING MEAL Levo-T 25 Levo-T 25 No Levo-T 25 [facility] mcg tablet mcg tablet mcg tablet Orthope RX by other RX by other RX by roger Laws Medicin e levothyroxi levothyroxi No levothyrox [facility] ne 75 mcg ne 75 mcg ine 75 mcg [facility] tablet TAKE tablet TAKE tablet dic 1 TABLET BY 1 TABLET BY TAKE 1 Sports MOUTH EVERY MOUTH EVERY TABLET BY Medicin DAY DAY MOUTH e EVERY DAY meloxicam meloxicam No 1 Q1D meloxicam [facility] 15 mg 15 mg 15 mg [facility] tablet Take tablet Take tablet dic 1 tablet 1 tablet Take 1 Sport s every day every day tablet Med icin by oral by oral every day e route. route. by oral route. pramipexole pramipexole No pramipexol [facility] 0.25 mg 0.25 mg e 0.25 mg Orth ope tablet TAKE tablet TAKE tablet dic 1 TABLET BY 1 TABLET BY TAKE 1 Sports MOUTH MOUTH TABLET BY Medicin EVERYDAY AT EVERYDAY AT MOUTH e BEDTIME BEDTIME EVERYDAY AT BEDTIME QuickVue QuickVue No QuickVue Aza veronica At-Home At-Home At-Home Orthop e COVID-19 COVID-19 COVID-19 dic Test kit Test kit Test kit Spo rts USE USE USE Medicin DIRECTED DIRECTED DIRECTED e ramipril 10 ramipril 10 No ramipril [facility] mg capsule mg capsule 10 mg Or thope TAKE 1 TAKE 1 capsule dic CAPSULE BY CAPSULE BY TAKE 1 S ports MOUTH TWICE MOUTH TWICE CAPSULE BY Medicin A DAY A DAY MOUTH e TWICE A DAY rosuvastati rosuvastati No rosuvastat [facility] n 5 mg n 5 mg in 5 mg [facility] tablet TAKE tablet TAKE tablet dic 1 TABLET BY 1 TABLET BY TAKE 1 Sports MOUTH TWO MOUTH TWO TABLET BY Medicin TIMES A TIMES A MOUTH TWO e WEEK. WEEK. TIMES A WEEK. Synjardy XR Synjardy XR No Synjardy [facility] 25 mg-1,000 25 mg-1,000 XR 25 [facility] mg tablet, mg tablet, mg-1,000 dic extended extended mg tablet, S ports release release extended Medic in TAKE 1 TAKE 1 release e TABLET BY TABLET BY TAKE 1 MOUTH EVERY MOUTH EVERY TABLET BY DAY IN THE DAY IN THE MOUTH MORNING MORNING EVERY DAY IN THE MORNING Voltaren Voltaren No Voltaren Aza veronica Arthritis Arthritis Arthritis [facility] Pain 1 % Pain 1 % Pain 1 % dic topical gel topical gel topical Sports APPLY 2 APPLY 2 gel APPLY Medi quentin GRAMS TO GRAMS TO 2 GRAMS TO e THE THE THE AFFECTED AFFECTED AFFECTED AREA(S) BY AREA(S) BY AREA(S) BY TOPICAL TOPICAL TOPICAL ROUTE 4 ROUTE 4 ROUTE 4 TIMES PER TIMES PER TIMES PER DAY DAY DAY amlodipine amlodipine No amlodipine [facility] 5 mg tablet 5 mg tablet 5 mg O rthope TAKE 1 TAKE 1 tablet dic TABLET BY TABLET BY TAKE 1 Spo rts MOUTH MOUTH TABLET BY Medicin EVERYDAY AT EVERYDAY AT MOUTH e BEDTIME BEDTIME EVERYDAY AT BEDTIME amoxicillin amoxicillin No amoxicilli [facility] 500 mg 500 mg n 500 mg [facility] capsule capsule capsule dic TAKE 1 TAKE 1 TAKE 1 Sports CAPSULE BY CAPSULE BY CAPSULE BY Medicin MOUTH THREE MOUTH THREE MOUTH e TIMES A DAY TIMES A DAY THREE TIMES A DAY cefdinir cefdinir No cefdinir Aza veronica 300 mg 300 mg 300 mg [facility] capsule capsule capsule dic TAKE 1 TAKE 1 TAKE 1 Sports CAPSULE BY CAPSULE BY CAPSULE BY Medicin MOUTH EVERY MOUTH EVERY MOUTH e 12 HOURS 12 HOURS EVERY 12 FOR 10 DAYS FOR 10 DAYS HOURS FOR 10 DAYS cetirizine cetirizine No cetirizine [facility] 10 mg 10 mg 10 mg [facility] tablet TAKE tablet TAKE tablet dic 1 TABLET BY 1 TABLET BY TAKE 1 Sports MOUTH EVERY MOUTH EVERY TABLET BY Medicin DAY DAY MOUTH e EVERY DAY clindamycin clindamycin No clindamyci [facility] HCl 300 mg HCl 300 mg n HCl 300 [facility] capsule capsule mg capsule dic TAKE 1 TAKE 1 TAKE 1 Sports CAPSULE BY CAPSULE BY CAPSULE BY Medicin MOUTH EVERY MOUTH EVERY MOUTH e 8 HOURS FOR 8 HOURS FOR EVERY 8 7 DAYS 7 DAYS HOURS FOR 7 DAYS clotrimazol clotrimazol No clotrimazo [facility] e-betametha e-betametha le-betamet [facility] sone 1 sone 1 hasone 1 dic %-0.05 % %-0.05 % %-0.05 % Spo rts topical topical topical Medici n cream APPLY cream APPLY cream e TO AFFECTED TO AFFECTED APPLY TO AREA OF AREA OF AFFECTED SKIN TWO SKIN TWO AREA OF TIMES A DAY TIMES A DAY SKIN TWO FOR TWO FOR TWO TIMES A WEEKS WEEKS DAY FOR TWO WEEKS diclofenac diclofenac No diclofenac [facility] 1 % topical 1 % topical 1 % O rthope gel APPLY 2 gel APPLY 2 topical dic GRAMS TO GRAMS TO gel APPLY Sp orts THE THE 2 GRAMS TO Medicin AFFECTED AFFECTED THE e AREA(S) BY AREA(S) BY AFFECTED TOPICAL TOPICAL AREA(S) BY ROUTE 4 ROUTE 4 TOPICAL TIMES PER TIMES PER ROUTE 4 DAY DAY TIMES PER DAY doxycycline doxycycline No doxycyclin [facility] hyclate 100 hyclate 100 e hyclate [facility] mg capsule mg capsule 100 mg d ic 1 CAPSULE 1 CAPSULE capsule 1 Sports ORALLY ORALLY CAPSULE Medicin TWICE DAILY TWICE DAILY ORALLY e 10 DAY(S) 10 DAY(S) TWICE DAILY 10 DAY(S) clindamycin clindamycin No 1capsul Q8H clindamyci [facility] HCl 300 mg HCl 300 mg e(s) n HCl 300 Medical capsule capsule mg capsule Take 1 Take 1 Take 1 capsule capsule capsule every 8 every 8 every 8 hours by hours by hours by oral route oral route oral route for 7 days. for 7 days. for 7 days. fluticasone fluticasone No fluticason [facility] propionate propionate e Ort hope 50 50 propionate dic mcg/actuati mcg/actuati 50 S ports on nasal on nasal mcg/actuat M edicin spray,suspe spray,suspe ion nasal e nsion 2 nsion 2 spray,susp SPRAYS IN SPRAYS IN ension 2 INTO EACH INTO EACH SPRAYS IN NOSTRIL NOSTRIL INTO EACH ONCE DAILY ONCE DAILY NOSTRIL ONCE DAILY Janumet XR Janumet XR No Janumet XR [facility] 100 100 100 [facility] mg-1,000 mg mg-1,000 mg mg-1,000 dic tablet,exte tablet,exte mg S ports nded nded tablet,ext Medicin release release ended e TAKE 1 TAKE 1 release TABLET BY TABLET BY TAKE 1 MOUTH EVERY MOUTH EVERY TABLET BY DAY WITH DAY WITH MOUTH EVENING EVENING EVERY DAY MEAL MEAL WITH EVENING MEAL levothyroxi levothyroxi No levothyrox [facility] ne 75 mcg ne 75 mcg ine 75 mcg [facility] tablet TAKE tablet TAKE tablet dic 1 TABLET BY 1 TABLET BY TAKE 1 Sports MOUTH EVERY MOUTH EVERY TABLET BY Medicin DAY DAY MOUTH e EVERY DAY meloxicam meloxicam No meloxicam [facility] 15 mg 15 mg 15 mg [facility] tablet TAKE tablet TAKE tablet dic 1 TABLET BY 1 TABLET BY TAKE 1 Sports MOUTH EVERY MOUTH EVERY TABLET BY Medicin DAY DAY MOUTH e EVERY DAY amlodipine amlodipine No amlodipine [facility] 5 mg tablet 5 mg tablet 5 mg F amily TAKE 1 TAKE 1 tablet Practic TABLET BY TABLET BY TAKE 1 e MOUTH MOUTH TABLET BY EVERYDAY AT EVERYDAY AT MOUTH BEDTIME BEDTIME EVERYDAY AT BEDTIME cevimeline cevimeline No 1capsul TID cevimeline [facility] 30 mg 30 mg e(s) 30 mg Family capsule capsule capsule Practi c Take 1 Take 1 Take 1 e capsule 3 capsule 3 capsule 3 times a day times a day times a by oral by oral day by route. route. oral route. fluticasone fluticasone No fluticason [place] propionate propionate e Fam jennifer 50 50 propionate Practic mcg/actuati mcg/actuati 50 e on nasal on nasal mcg/actuat spray,suspe spray,suspe ion nasal nsion nsion spray,susp INSTILL 2 INSTILL 2 ension SPRAYS IN SPRAYS IN INSTILL 2 EACH EACH SPRAYS IN NOSTRIL NOSTRIL EACH ONCE A DAY ONCE A DAY NOSTRIL 30 DAY(S) 30 DAY(S) ONCE A DAY 30 DAY(S) Janumet XR Janumet XR No Janumet XR [facility] 100 100 100 Family mg-1,000 mg mg-1,000 mg mg-1,000 Practic tablet,exte tablet,exte mg e nded nded tablet,ext release release ended TAKE 1 TAKE 1 release TABLET BY TABLET BY TAKE 1 MOUTH EVERY MOUTH EVERY TABLET BY DAY WITH DAY WITH MOUTH EVENING EVENING EVERY DAY MEAL MEAL WITH EVENING MEAL levothyroxi levothyroxi No levothyrox [facility] ne 75 mcg ne 75 mcg ine 75 mcg Family tablet TAKE tablet TAKE tablet Practic 1 TABLET BY 1 TABLET BY TAKE 1 e MOUTH EVERY MOUTH EVERY TABLET BY DAY DAY MOUTH EVERY DAY magnesium magnesium No magnesium [facility] apart otc apart otc apart otc Family Practic e OneTouch OneTouch No OneTouch Susie diane Delica Delica Delica Family Lancets Lancets Lancets Practi c e OneTouch OneTouch No 1strip( Q1D OneTouch [facility] Verio test Verio test s) Verio test Family strips Take strips Take strips Practic 1 strip 1 strip Take 1 e every day every day strip by miscell. by miscell. every day route for route for by 90 days. 90 days. miscell. route for 90 days. Probiotic Probiotic No Probiotic [facility] QuickVue QuickVue No QuickVue Susie diane [facility]-Home [facility] Family COVID-19 COVID-19 COVID-19 Pra ctic Test kit Test kit Test kit e USE USE USE DIRECTED DIRECTED DIRECTED ramipril 10 ramipril 10 No ramipril [facility] mg capsule mg capsule 10 mg Fa angel TAKE 1 TAKE 1 capsule Practic CAPSULE BY CAPSULE BY TAKE 1 e MOUTH EVERY MOUTH EVERY CAPSULE BY DAY DAY MOUTH EVERY DAY rosuvastati rosuvastati No rosuvastat [facility] n 5 mg n 5 mg in 5 mg Family tablet TAKE tablet TAKE tablet Practic 1 TABLET BY 1 TABLET BY TAKE 1 e MOUTH TWO MOUTH TWO TABLET BY TIMES A TIMES A MOUTH TWO WEEK. WEEK. TIMES A WEEK. amlodipine amlodipine No amlodipine [facility] 5 mg tablet 5 mg tablet 5 mg F amily TAKE 1 TAKE 1 tablet Practic TABLET BY TABLET BY TAKE 1 e MOUTH MOUTH TABLET BY EVERYDAY AT EVERYDAY AT MOUTH BEDTIME BEDTIME EVERYDAY AT BEDTIME cetirizine cetirizine No cetirizine [facility] 10 mg 10 mg 10 mg Family tablet TAKE tablet TAKE tablet Practic 1 TABLET BY 1 TABLET BY TAKE 1 e MOUTH EVERY MOUTH EVERY TABLET BY DAY DAY MOUTH EVERY DAY cevimeline cevimeline No 1capsul TID cevimeline [facility] 30 mg 30 mg e(s) 30 mg Family capsule capsule capsule Practi c Take 1 Take 1 Take 1 e capsule 3 capsule 3 capsule 3 times a day times a day times a by oral by oral day by route. route. oral route. clotrimazol clotrimazol No clotrimazo [facility] e-betametha e-betametha le-betamet Family sone 1 sone 1 hasone 1 Practic %-0.05 % %-0.05 % %-0.05 % e topical topical topical cream APPLY cream APPLY cream TO AFFECTED TO AFFECTED APPLY TO AREA OF AREA OF AFFECTED SKIN TWO SKIN TWO AREA OF TIMES A DAY TIMES A DAY SKIN TWO FOR TWO FOR TWO TIMES A WEEKS WEEKS DAY FOR TWO WEEKS diclofenac diclofenac No diclofenac [facility] 1 % topical 1 % topical 1 % F amily gel APPLY 2 gel APPLY 2 topical Practic GRAMS TO GRAMS TO gel APPLY e THE THE 2 GRAMS TO AFFECTED AFFECTED THE AREA(S) BY AREA(S) BY AFFECTED TOPICAL TOPICAL AREA(S) BY ROUTE 4 ROUTE 4 TOPICAL TIMES PER TIMES PER ROUTE 4 DAY DAY TIMES PER DAY doxycycline doxycycline No doxycyclin [facility] hyclate 100 hyclate 100 e hyclate Family mg capsule mg capsule 100 mg P ractic 1 CAPSULE 1 CAPSULE capsule 1 e ORALLY ORALLY CAPSULE TWICE DAILY TWICE DAILY ORALLY 10 DAY(S) 10 DAY(S) TWICE DAILY 10 DAY(S) fluticasone fluticasone fluticason [facility] propionate propionate e Fam jennifer 50 50 propionate Practic mcg/actuati mcg/actuati 50 e on nasal on nasal mcg/actuat spray,suspe spray,suspe ion nasal nsion 2 nsion 2 spray,susp SPRAYS IN SPRAYS IN ension 2 INTO EACH INTO EACH SPRAYS IN NOSTRIL NOSTRIL INTO EACH ONCE DAILY ONCE DAILY NOSTRIL ONCE DAILY Janumet XR Janumet XR No Janumet XR [facility] 100 100 100 Family mg-1,000 mg mg-1,000 mg mg-1,000 Practic tablet,exte tablet,exte mg e nded nded tablet,ext release release ended TAKE 1 TAKE 1 release TABLET BY TABLET BY TAKE 1 MOUTH EVERY MOUTH EVERY TABLET BY DAY WITH DAY WITH MOUTH EVENING EVENING EVERY DAY MEAL MEAL WITH EVENING MEAL levothyroxi levothyroxi No levothyrox [facility] ne 75 mcg ne 75 mcg ine 75 mcg Family tablet TAKE tablet TAKE tablet Practic 1 TABLET BY 1 TABLET BY TAKE 1 e MOUTH EVERY MOUTH EVERY TABLET BY DAY DAY MOUTH EVERY DAY magnesium magnesium No magnesium [facility] apart otc apart otc apart otc Family Practic e meloxicam meloxicam meloxicam [facility] 15 mg 15 mg 15 mg Family tablet TAKE tablet TAKE tablet Practic 1 TABLET BY 1 TABLET BY TAKE 1 e MOUTH EVERY MOUTH EVERY TABLET BY DAY DAY MOUTH EVERY DAY OneTouch OneTouch No OneTouch Susie diane Delica Delica Delica Family Lancets Lancets Lancets Practi c e OneTouch OneTouch No 1strip( Q1D OneTouch [facility] Verio test Verio test s) Verio test Family strips Take strips Take strips Practic 1 strip 1 strip Take 1 e every day every day strip by miscell. by miscell. every day route for route for by 90 days. 90 days. miscell. route for 90 days. Probiotic Probiotic No Probiotic [facility] Family Practic e QuickVue QuickVue No QuickVue Susie contreras [facility] Family COVID-19 COVID-19 COVID-19 Pra ctic Test kit Test kit Test kit e USE USE USE DIRECTED DIRECTED DIRECTED ramipril 10 ramipril 10 No ramipril [facility] mg capsule mg capsule 10 mg Fa angel TAKE 1 TAKE 1 capsule Practic CAPSULE BY CAPSULE BY TAKE 1 e MOUTH TWICE MOUTH TWICE CAPSULE BY A DAY A DAY MOUTH TWICE A DAY rosuvastati rosuvastati No rosuvastat [facility] n 5 mg n 5 mg in 5 mg Family tablet TAKE tablet TAKE tablet Practic 1 TABLET BY 1 TABLET BY TAKE 1 e MOUTH TWO MOUTH TWO TABLET BY TIMES A TIMES A MOUTH TWO WEEK. WEEK. TIMES A WEEK. cetirizine cetirizine No cetirizine [place] 10 mg 10 mg 10 mg Communi tablet TAKE tablet TAKE tablet ty 1 TABLET BY 1 TABLET BY TAKE 1 Hospita MOUTH EVERY MOUTH EVERY TABLET BY l DAY DAY MOUTH Clinics EVERY DAY diclofenac diclofenac No diclofenac [place] 1 % topical 1 % topical 1 % C [place] gel APPLY 2 gel APPLY 2 topical ty GRAMS TO GRAMS TO gel APPLY Ho spita THE THE 2 GRAMS TO l AFFECTED AFFECTED THE Clinics AREA(S) BY AREA(S) BY AFFECTED TOPICAL TOPICAL AREA(S) BY ROUTE 4 ROUTE 4 TOPICAL TIMES PER TIMES PER ROUTE 4 DAY DAY TIMES PER DAY Janumet XR Janumet XR No Janumet XR [place] 100 100 100 Communi mg-1,000 mg mg-1,000 mg mg-1,000 ty tablet,exte tablet,exte mg H ospita nded nded tablet,ext l release release ended Clinics TAKE 1 TAKE 1 release TABLET BY TABLET BY TAKE 1 MOUTH EVERY MOUTH EVERY TABLET BY DAY WITH DAY WITH MOUTH EVENING EVENING EVERY DAY MEAL MEAL WITH EVENING MEAL levothyroxi levothyroxi No levothyrox [place] ne 75 mcg ne 75 mcg ine 75 mcg Communi tablet TAKE tablet TAKE tablet ty 1 TABLET BY 1 TABLET BY TAKE 1 Hospita MOUTH EVERY MOUTH EVERY TABLET BY l DAY DAY MOUTH Clinics EVERY DAY meloxicam meloxicam No meloxicam [place] 15 mg 15 mg 15 mg Communi tablet TAKE tablet TAKE tablet ty 1 TABLET BY 1 TABLET BY TAKE 1 Hospita MOUTH EVERY MOUTH EVERY TABLET BY l DAY DAY MOUTH Clinics EVERY DAY ramipril 10 ramipril 10 No ramipril [place] mg capsule mg capsule 10 mg Co mmuni TAKE 1 TAKE 1 capsule ty CAPSULE BY CAPSULE BY TAKE 1 H ospita MOUTH EVERY MOUTH EVERY CAPSULE BY l DAY DAY MOUTH Clinics EVERY DAY Immunizations Ordered Filled Immunization Date Status Comments Sourc e Immunization Name Name pneumococcal pneumococcal 2017-06-23 Completed [facility] conjugate PCV 7 conjugate PCV 7 00:00:00 [facility] pneumococcal pneumococcal 2017-06-23 Completed [facility] hopedic conjugate PCV 7 conjugate PCV 7 00:00:00 [facility] pneumococcal pneumococcal 2017-06-23 Completed [facility] hopedic conjugate PCV 7 conjugate PCV 7 00:00:00 Spor ts Medicine tetanus toxoid, tetanus toxoid, 2007-03-08 Completed [facility] adsorbed adsorbed 00:00:00 Practice tetanus toxoid, tetanus toxoid, 2007-03-08 Completed [facility] adsorbed adsorbed 00:00:00 Practice Vital Signs Vital Name Observation Time Observation Value Comments Source BP Diastolic 2022-06-04 00:00:00 79 mm[Hg] [facility] Height 2022-06-04 00:00:00 64.5 [in_i] [facility] BMI (Body Mass 2022-06-04 00:00:00 31.6 kg/m2 [facility] e Family Index) Practice BP Systolic 2022-06-04 00:00:00 132 mm[Hg] [facility] Body Weight 2022-06-04 00:00:00 187 [lb_av] [facility] BP Diastolic 2022-04-28 00:00:00 59 mm[Hg] [facility] s BP Systolic 2022-04-28 00:00:00 144 mm[Hg] [facility] s Body Weight 2022-04-28 00:00:00 2960 [oz_av] [facility] s Height 2022-04-23 00:00:00 64 [in_i] [facility] BMI (Body Mass 2022-04-23 00:00:00 31.4 kg/m2 [facility] Index) Sports Medicine Body Weight 2022-04-23 00:00:00 183 [lb_av] [facility] Height 2022-03-26 00:00:00 64 [in_i] [facility] BMI (Body Mass 2022-03-26 00:00:00 31.4 kg/m2 [facility] Index) Sports Medicine Body Weight 2022-03-26 00:00:00 183 [lb_av] [facility] Body height 2021-10-29 19:22:[facility] 2021-10-29 19[facility]22:00 [facility]276 [facility] BMI 2021-10-29 19:22:00 32.27 kg[facility]m2 [facility] BP Diastolic 2021-10-09 00:00:00 73 mm[Hg] [facility] Height 2021-10-09 00:00:00 64.5 [in_i] [facility] BMI (Body Mass 2021-10-09 00:00:00 32.3 kg/m2 [facility] Family Index) Practice BP Systolic 2021-10-09 00:00:00 129 mm[Hg] [facility] Body Weight 2021-10-09 00:00:00 191 [lb_av] [facility] BP Diastolic 2021-10-01 00:00:00 80 mm[Hg] [facility] 2021-10-01 00:00:00 64.5 [in_i] [facility] BMI (Body Mass 2021-10-01 00:00:00 31.9 kg/m2 [facility] Medical Index) BP Systolic 2021-10-01 00:00:00 156 mm[Hg] [facility] Body Weight 2021-10-01 00:00:00 189 [lb_av] [facility] BP Diastolic 2021-07-25 00:00:00 68 mm[Hg] [facility] Height 2021-07-25 00:00:00 64.5 [in_i] [facility] BMI (Body Mass 2021-07-25 00:00:00 32.7 kg/m2 [facility] Family Index) Practice BP Systolic 2021-07-25 00:00:00 131 mm[Hg] [facility] Body Weight 2021-07-25 00:00:00 193.2 [lb_av] [facility] Systolic blood 2021-05-08 21:19:00 119 mm[facility]Hg[facility] Diastolic blood 2021-05-08 21:19:00 63 mm[Hg[facility] Heart rate 2021-05-08 21:19:00 72 [facility]min [facility] Body temperature 2021-05-08 21:19:00 [facility]5 [facility] height 2021-05-08 21:19:00 [facility]4 [facility] Body weight 2021-05-08 21:19:00 [facility]091 [facility] BMI 2021-05-08 21:19:00 37.50 kg[facility]m2 [facility] BP Diastolic 2021-04-30 00:00:00 74 mm[Hg] [facility] Height 2021-04-30 00:00:00 64.5 [in_i] [facility] BMI (Body Mass 2021-04-30 00:00:00 33 kg/m2 [facility] Index) Practice BP Systolic 2021-04-30 00:00:00 154 mm[Hg] [facility] Body Weight 2021-04-30 00:00:00 195 [lb_av] [facility] BP Diastolic 2020-07-16 00:00:00 76 mm[Hg] [facility] Height 2020-07-16 00:00:00 64.5 [in_i] [facility] BMI (Body Mass 2020-07-16 00:00:00 32.3 kg/m2 [facility] Index) Practice BP Systolic 2020-07-16 00:00:00 127 mm[Hg] [facility] Body Weight 2020-07-16 00:00:00 191.4 [lb_av] [facility] BP Diastolic 2019-12-27 00:00:00 64 mm[Hg] [facility] Height 2019-12-27 00:00:00 64.5 [in_i] [facility] BMI (Body Mass 2019-12-27 00:00:00 30.7 kg/m2 [facility] Index) Practice BP Systolic 2019-12-27 00:00:00 136 mm[Hg] [facility] Body Weight 2019-12-27 00:00:00 181.6 [lb_av] [facility] Systolic blood 2019-09-07 13:25:00 114 mm[Hg] [facility] Diastolic blood 2019-09-07 13:25:00 73 mm[Hg] Unive rsity of pressure [facility] Heart rate 2019-09-07 13:25:00 77 /min [facility] Body temperature 2019-09-07 13:25:00 36.67 Thelma [facility] 2019-09-07 13:25:00 17 /min [facility] Body height 2019-09-07 13:25:00 163.8 cm [facility] Body weight 2019-09-07 13:25:00 78.472 kg [facility] BMI 2019-09-07 13:25:00 29.24 kg/m2 [facility] Oxygen saturation in 2019-09-07 13:25:00 96 /min [facility] Arterial blood by [facility] Pulse oximetry Branch Procedures Procedure Date / Time Performing Clinician Source Performed XR, knee, 1 or 2 view 2022-03-26 00:00:00 [facility] RADEX PELVIS 1/2 VIEWS 2022-03-26 00:00:00 Adonis bergman [facility] MRI, knee, w/o contrast 2022-03-26 00:00:00 Jimbo serrato [facility] MAMMO, screening, 2021-10-01 00:00:00 [facility] bilateral Colonoscopy 2021-09-24 00:00:00 [facility] Colonoscopy 2018-08-06 00:00:00 [facility] Kiana ly Practice Repair of Anterior 2016-07-06 00:00:00 [facility] Charlotte amilvaughn Palatal Fistula with Practice Buccal Flap Surgical Repair of 2016-05-06 00:00:00 [facility] Charlotte amily Prolapsed Uterus Practice Hysterectomy (Total) 2016-05-06 00:00:00 [facility] Colonoscopy 2013-03-08 00:00:00 [facility] Dilation and Curettage 1981-03-08 00:00:00 [facility] Dilation and Curettage 1976-03-08 00:00:00 [facility] Operation on Rectum [facility] Other [facility] Hernia Repair [facility] Hysterectomy [facility] Plan of Care Planned Activity Planned Date Details Comments Source Diagnostic Test 2022-06-04 glucose, fingerstick, Susie diane [facility] Pending 00:00:00 blood [code = glucose, Pract ice fingerstick, blood] Future Scheduled 2022-05-19 COVID-19 VACCINE (#1) [facility] 11:32:36 [code = COVID-19 Hospital VACCINE (#1)] Future Scheduled 2022-05-19 Hepatitis C screening [facility] 11:32:36 (procedure) [code = Hospital [id number]] Future Scheduled 2022-05-19 BREAST CANCER SCREENING [facility] 11:32:36 [code = BREAST CANCER Hospit al SCREENING] Future Scheduled 2022-05-19 COLONOSCOPY SCREENING [facility] 11:32:36 [code = COLONOSCOPY Hospital SCREENING] Future Scheduled 2022-05-19 SHINGLES VACCINES (1 of [facility] 11:32:36 2) [code = SHINGLES Hospital VACCINES (1 of 2)] Future Scheduled 2022-05-19 65+ [address] [facility] Test 11:32:36 VACCINE (1 - PCV) [code Hosp ital = 65+ PNEUMOCOCCAL VACCINE (1 - PCV)] Future Scheduled 2022-05-19 INFLUENZA VACCINE [code [facility] 11:32:36 = INFLUENZA VACCINE] Hospita l Diagnostic Test 2022-04-28 T4, free + T4, total [facility] Pending 00:00:00 serum [code = T4, free Hospi [facility] + T4, total serum] Diagnostic Test 2022-04-28 FSH [facility] Pending 00:00:00 (follicle-stimulating Hospit [facility] hormone), serum [code = FSH (follicle-stimulating hormone), serum] Diagnostic Test 2022-04-28 estradiol, serum [code [facility] Pending 00:00:00 = estradiol, serum] Hospital Clinics Diagnostic Test 2022-04-28 testosterone, total, [facility] Pending 00:00:00 serum [code = [facility] testosterone, total, serum] Diagnostic Test 2022-04-28 TSH, serum or plasma [facility] Pending 00:00:00 [code = TSH, serum or Hospit [facility] plasma] Diagnostic Test 2022-04-28 T3, free, serum or Count Includes [facility] Pending 00:00:00 plasma [code = T3, Hospital Clinics free, serum or plasma] Diagnostic Test 2022-04-28 thyroid peroxidase Count Includes [facility] Pending 00:00:00 (tpo) Ab, serum [code = Hosp ital Clinics thyroid peroxidase (tpo) Ab, serum] Diagnostic Test 2022-04-28 [facility] serum [code = vitamin Hospit al Clinics D3, 25-hydroxy, serum] Diagnostic Test 2022-04-28 vitamin B12, serum Count Includes [facility] Pending 00:00:00 [code = vitamin B12, Hospita l Clinics serum] Diagnostic Test 2022-04-28 CBC w/ auto diff [code Sw eeny [facility] Pending 00:00:00 = CBC w/ auto diff] Hospital Clinics Diagnostic Test 2022-04-28 CMP, serum or plasma [facility] Pending 00:00:00 [code = CMP, serum or Hospit al Clinics plasma] Diagnostic Test 2021-10-01 Cytomegalovirus Ab [facility] Pending 00:00:00 [Titer] in Serum or Plasma by Latex agglutination [code = 5121-9] Future Appointment 2022-12-04 Santos Hendrickson, [address] [place] 10:15:00 Sunita Diaz; Practice [address], [place] [address] Encounters Start End Encounter Admission Attending Care Care Encounter Source Date/Time Date/Time Type Type Clinicians Facility Department ID 2022-06-04 2022-06-04 Outpatient Emeka_Franklin VFP VFP [id number] [address] [place] [address] 00:00:00 00:00:00 [id number] Family Practic e 2022-06-04 2022-06-04 Santos [facility] [place] - [id number] V illage 00:00:00 00:00:00 [facility] HendricksonMirta - Antonino dawson MD: [id number] [place] - e Shadow MARYELLEN_CRYSTAL[facility] Ranjit Diaz, [address], [place] [address] , Ph. 2022-06-01 2022-06-01 Outpatient Emeka_Franklin VFP VFP [id number] [address] [place] [address] 00:00:00 00:00:00 [id number] Family Practic e 2022-04-29 2022-04-29 Outpatient GT_C [facility] 2022 [place] 00:00:00 00:00:00 [id number] [facility] i ty Hosp[facility] l Clinics 2022-04-28 2022-04-28 Outpatient SISSON_C [facility] 2022 [place] 00:00:00 00:00:00 [id number] Commun i ty Hospita l Clinics 2022-04-28 2022-04-28 [facility] [place] 21 [place] 00:00:00 00:00:00 [facility] MSN, [employer]ENGTH TESTER, Hospital - ty ORDNANCE TECHNICIAN-C: [address] [place] [address] [facility], [facility], [facility] [address], [facility] [address], [place], [place] MSN, ORDNANCE TECHNICIAN-C [address] , Ph. 2022-04-27 2022-04-27 Outpatient GT_Get [facility] 2022 [place] 00:00:00 00:00:00 [id number] [facility] 2022-04-23 2022-04-23 Jacinto Angelina AOSM [place] - Ortho 16 [place] 00:00:00 00:00:00 MD Negro: Aury Harrison - Orthopmarcela [address] FOG_Ofc dic [place], [address], [place] [address] , Ph. [phone] 2022-04-03 2022-04-03 Outpatient FOG_Burke_R AOSM AOSM [id number] 0950-20 [place] 00:00:00 00:00:00 Yrn [id number] Ortho pe dic [facility] Medicin e 2022-04-03 2022-04-03 Outpatient FOG_Burke_R AOSM AOSM [id number] 0950-20 [place] 00:00:00 00:00:00 Yrn [id number] Ortho pe dic [facility] Medicin e 2022-03-31 2022-03-31 Outpatient SISSON_C [facility] [id number] [place] 00:00:00 00:00:00 [id number] [facility] 2022-03-27 2022-03-27 Outpatient FOG_Burke_R AOSM AOSM 582 0950-20 [place] 00:00:00 00:00:00 Yrn [id number] Ortho pe [facility] 2022-03-27 2022-03-27 Jacinto Alfaro AOSM [place] - Ortho [place] 00:00:00 00:00:00 MD Negro: Aury Weldon [address] [facility] [address], Medicin [facility] [address] , Ph. [phone] 2022-03-26 2022-03-26 Outpatient FOG_Burke_R AOSM AOSM 582 0950-20 [place] 00:00:00 00:00:00 Yrn [id number] Ortho pe dic Sports Medicin e 2022-03-26 2022-03-26 Jacinto Alfaro AOSM [place] - Ortho [place] 00:00:00 00:00:00 MD Negro: Aury Weldon [address] FOG_Ofc dic [facility] Secure [employer] s [address], [facility] [address] , Ph. [phone] 2022-03-13 2022-03-13 Outpatient FOG_Burke_R AOSM AOSM 582 0950-20 [place] 00:00:00 00:00:00 Yrn [id number] Ortho pe dic Sports Medicin e 2022-03-13 2022-03-13 Outpatient FOG_Burke_R AOSM AOSM [id number] 0950-20 [place] 00:00:00 00:00:00 Yrn [id number] Ortho pe dic Sports Medicin e 2022-01-13 2022-01-13 Outpatient Daniel_T VFP VFP [id number] [facility] 00:00:00 00:00:00 [id number] Family Practic e 2021-12-02 2021-12-02 Outpatient GC_SWHAOMC_ PRIV PRIV [id number] [place] 00:00:00 00:00:00 Danielle [id number] [facility] 2021-11-21 2021-11-21 Outpatient GC_SWHAOMC_ PRIV PRIV [id number] [facility] 00:00:00 00:00:00 Danielle [id number] [facility] 2021-11-04 2021-11-04 Outpatient GC_SWHAOMC_ PRIV PRIV [id number] [facility] 00:00:00 00:00:00 RayshawnCastillo [id number] [facility] 2021-10-29 2021-10-29 Office BK Ibrahim ORTHO [id number] [place] 14:30:00 15:09:59 Visit Kg SUGAR [id number] He alth [place] [id number] 2021-10-29 2021-10-29 Outpatient DOMÍNGUEZ, [facility] [id number] [place] 13:00:00 13:00:00 [facility] 2021-10-29 2021-10-29 Outpatient [facility] [id number] [place] 00:00:00 00:00:00 [facility] 2021-10-28 2021-10-28 Outpatient Daniel_T VFP VFP [id number] [address] [place] [address] 00:00:00 00:00:00 [id number] Family Practic e 2021-10-25 2021-10-25 Outpatient Daniel_T VFP VFP [id number] [address] [place] [address] 00:00:00 00:00:00 [id number] Family Practic e 2021-10-22 2021-10-22 Outpatient Daniel_T VFP VFP [id number] [address] [place] [address] 00:00:00 00:00:00 [id number] Family Practic e 2021-10-09 2021-10-09 Outpatient Daniel_T VFP VFP [id number] [address] [place] [address] 00:00:00 00:00:00 [id number] Family Practic e 2021-10-09 2021-10-09 Santos VFP [place] - [id number] V illage 00:00:00 00:00:00 [facility] Mirta Hendrickson - Pracbroderick dawson MD: [id number] MARYELLEN_CRYSTAL_Maksim e Shadow [facility], [address], [place] [address] , Ph. 2021-10-01 2021-10-01 Outpatient GC_SWHAOMC_ PRIV PRIV [id number] [facility] 00:00:00 00:00:00 Danielle [id number] [facility] 2021-10-01 2021-10-01 Outpatient Mariya, PRIV PRIV [id number] 00:00:00 00:00:00 Deepak Carlin [id number] 2021-10-01 2021-10-01 [facility] 27 [facility] 00:00:00 00:00:00 Tesfaye [facility] - Medic lucia Meraz GC_SWHAOMC_ MD: 7900 Kyara [address] [facility] [place], [address], [place] [address] , Ph. 2021-09-30 2021-09-30 Outpatient GC_SWHAOMC_ PRIV PRIV [id number] [facility] 10:50:00 10:50:00 Danielle [id number] [facility] 2021-09-30 2021-09-30 Outpatient Emeka_Franklin VFP VFP [id number] [facility] 00:00:00 00:00:00 [id number] Family Practic e 2021-09-29 2021-09-29 Outpatient GC_SWHAOMC_ PRIV PRIV [id number] [facility] 02:13:00 02:13:00 Danielle [id number] [facility] 2021-09-25 2021-09-25 Outpatient GC_SWHATBIC PRIV PRIV [id number] [facility] 11:38:00 11:38:00 _Fisher_H [id number] [facility] 2021-09-25 2021-09-25 Office BK Hubbard [id number] [place] 10:00:00 10:36:55 Visit Augie REYNA [id number] [facility] [id number] 2021-09-23 2021-09-23 Outpatient GC_SWHAOMC_ PRIV PRIV [id number] [facility] 04:37:00 04:37:00 Danielle [id number] [facility] 2021-08-19 2021-08-19 Outpatient Matthewel_T VFP VFP [id number] [id number] [facility] 12:57:00 12:57:00 [id number] Family Practic e 2021-07-25 2021-07-25 Outpatient Daniel_T VFP VFP [id number] [address] [place] [address] 11:58:00 11:58:00 [id number] Family Practic e 2021-07-25 2021-07-25 Santos VFP [place] - [id number] [place] 00:00:00 00:00:00 [facility] Family HendricksonMirta MD: [id number] MARYELLEN_CRYSTAL_Maksim medrano [address], [place] [address] , Ph. 2021-07-24 2021-07-24 Outpatient Daniel_T VFP VFP [id number] [address] [place] [address] 03:34:00 03:34:00 [id number] Family Zaki e 2021-06-26 2021-06-26 Office BK Hubbard [id number] [place] 11:00:00 11:15:51 Visit Augie HERNANDEZIZABELA [id number] [facility] [id number] [id number] 2021-05-22 2021-05-22 Outpatient Daniel_T VFP VFP [id number] [address] [place] [address] 03:51:00 03:51:00 [id number] Family Practic e 2021-05-08 2021-05-08 Office BK Hubbard [id number] [place] 14:45:00 15:33:14 Visit Augie HERNANDEZIZABELA [id number] [facility] [id number] [id number] 2021-04-30 2021-04-30 Outpatient Daniel_T VFP VFP [id number] [address] [place] [address] 02:56:00 02:56:00 [id number] Family Zaki e 2021-04-30 2021-04-30 Santos VFP [place] - [id number] V illage 00:00:00 00:00:00 [facility] Family Hendrickson Mirta dawson MD: [id number] MARYELLEN_CRYSTAL_Maksim medrano Shadow [address], [address], [place] [address] , Ph. 2020-08-29 2020-08-29 Outpatient Daniel_T VFP VFP [id number] [address] [place] [address] 12:23:00 12:23:00 [id number] Family Practic e 2020-08-20 2020-08-20 Outpatient BISI [facility] [id number] [place] 00:00:00 00:00:00 JENNIFER [address] 2020-08-20 2020-08-20 [facility] [id number] [place] 00:00:00 00:00:00 JENNIFER [address] 2020-08-05 2020-08-05 Outpatient Daniel_T VFP VFP [id number] [address] [place] [address] 01:01:00 01:01:00 [id number] Family Practic e 2020-07-17 2020-07-17 Outpatient Daniel_T VFP VFP [id number] [address] [place] [address] 01:17:00 01:17:00 [id number] Family Practic e 2020-07-16 2020-07-16 Outpatient Daniel_T VFP VFP [id number] [address] [place] [address] 05:05:00 05:05:00 [id number] Family Practic e 2020-07-16 2020-07-16 Santos VFP [place] - [id number] V ill[place] 00:00:00 00:00:00 [facility] Family HendricksonMirta - Antonino dawson MD: [id number] VM_HOU_Shad e [facility], [address], [place] [address] , Ph. 2020-07-12 2020-07-12 Outpatient Daniel_T VFP VFP [id number] [address] [place] [address] 01:45:00 01:45:00 [id number] Family Practic e 2020-07-12 2020-07-12 Outpatient Daniel_T VFP VFP [id number] [address] [place] [address] 01:45:00 01:45:00 [id number] Family Practic e 2020-07-08 2020-07-08 Outpatient Daniel_T VFP VFP [id number] [address] [place] [address] 01:08:00 01:08:00 [id number] Family Practic e 2020-04-17 2020-04-17 Outpatient Daniel_T VFP VFP [id number] [address] [place] [address] 04:57:00 04:57:00 [id number] Family Practic e 2020-04-15 2020-04-15 Outpatient Daniel_T VFP VFP [id number] [address] [place] [address] 01:26:00 01:26:00 [id number] Family Practic e 2020-01-17 2020-01-17 Outpatient Daniel_T VFP VFP [id number] [address] [place] [address] 11:26:00 11:26:00 [id number] Family Practic e 2019-12-27 2019-12-27 Outpatient Daniel_T VFP VFP [id number] [address] [place] [address] 04:14:00 04:14:00 Family Practic e 2019-12-27 2019-12-27 Outpatient Daniel_T VFP VFP [id number] [address] [place] [address] 04:14:00 04:14:00 Family Practic e 2019-12-27 2019-12-27 Outpatient Daniel_T VFP VFP [id number] [address] [place] [address] 02:37:00 02:37:00 [id number] Family Practic e 2019-12-27 2019-12-27 Santos VFP [place] - [id number] V illage 00:00:00 00:00:00 [facility] Family HendricksonMitra - Pracbroderick dawson MD: [id number] VM_HOU_Matthew e [facility] [address] [place] [address], [place] [address] , Ph. 2019-12-26 2019-12-26 Outpatient Daniel_T VFP VFP [id number] [address] [place] [address] 04:11:00 04:11:00 Family Practic e 2019-09-12 2019-09-12 Telephone Pob1, Acute [facility] [id number] [facility] 00:00:00 00:00:00 [facility] [id number] ity of [place] [id number] Keith as Lillian [phone] Ne dical nal [address] 2019-09-10 2019-09-10 Telephone Anat RENTERIA [id number] Univers 00:00:00 00:00:00 Lor barlow [id number] ity of [facility] [id number] Keith as [id number] [address] 2019-09-09 2019-09-[address] [facility] [id number] Univers 12:20:00 12:20:[facility] 2019-09-07 2019-09-07 Urgent Pob1, Acute Care Clinic [facility] [id number] Univers 08:02:31 08:22:31 Pradeep Rocha [facility] [id number] [facility] [id number] Keith as Emilyio [phone] Ne dical [address] Office [address] 2019-09-07 2019-09-[address] [facility] [id number] Univers 08:00:00 08:00:00 [facility] Results Test Description Test Time Test Comments Results Result Comments Source Glucose [Mass/volume] in Capillary blood 2022-06-04 11:54:19 Test Item Value Reference Range Interpretation Comme nts Blood Glucose: mg/dl (test code = Blood Glucose: mg/dl) [facility] [place] [facility] A1c measurement device [id number] 09:45:17 Test Item Value Reference Range Interpretation Comments Hemoglobin A1c/Hemoglobin.total in 7.4 % 5.7-6.4 Blood (test code = 4548-4) [facility] PracticeGl[facility] [Mass/volume] in Capillary [id number] 09:39:33 Test Item Value Reference Range Interpretation Comments Blood Glucose: mg/dl (test code = Blood 150 Glucose: mg/dl) [place] PracticeHemoglobin A1c measurement device [id number] 11:30:53 Test Item Value Reference Range Interpretation Comments Hemoglobin A1C Fingerstick: (test code 7.9 = Hemoglobin A1C Fingerstick:) [facility] PracticeGlucose [Mass/volume] in Capillary [id number] 11:27:03 Test Item Value Reference Range Interpretation Comments Blood Glucose: mg/dl (test code = Blood 215 Glucose: mg/dl) [facility] [id number] 14:14:07 Test Item Value Reference Range Interpretation Comments Hemoglobin A1C Fingerstick: (test code 7.5 = Hemoglobin A1C Fingerstick:) [facility] PracticeGlucose [Mass/volume] in Capillary [id number] 14:11:08 Test Item Value Reference Range Interpretation Comments Blood Glucose: mg/dl (test code = Blood 156 Glucose: mg/dl) [facility]
[2022-06-09 19:16] LABS: Absolute Lymphocytes (CBC) 2.4 K/uL (0.7-4.9); Hematocrit 40.2 % (36.0-45.0); Lymphocytes % 36.4 % (15.3-44.8); MCV 88.9 fL (80-100); RBC Red Blood Cell Count 4.52 M/uL (3.86-4.86)
[2022-06-09 19:30] LABS: Potassium 3.9 mEq/L (3.5-5.1); Troponin High Sensitivity 5.9 pg/mL (<58.9)
--- NOTE | 2022-06-09 19:49 | RAD REPORT ---
EXAM DESCRIPTION: Flaco Single View06/09/2022 7:34 pm CLINICAL HISTORY: Chest pain COMPARISON: 2019 FINDINGS: The lungs appear clear of acute infiltrate. The heart is normal size IMPRESSION: No acute abnormalities displayed
[2022-06-09] MEDS ORDERED: ASPIRIN 81 MG CHEWABLE TABLET ONE (20:20)
[2022-06-09] MEDS ORDERED: cloNIDine HCL 0.1 MG TAB ONE (20:20)
[2022-06-09] MEDS ORDERED: ONDANSETRON 4 MG/2 ML VIAL ONE (20:21)
[2022-06-09] MEDS ORDERED: MORPHINE 2 MG/ML SYR ONE (20:21)
--- NOTE | 2022-06-09 21:46 | RAD REPORT ---
EXAM DESCRIPTION: CT - Chest For Pe Angio - 06/09/2022 9:20 pm CLINICAL HISTORY: Chest pain COMPARISON: None. TECHNIQUE: Dynamically enhanced axial 3 mm thick images of the chest were obtained during administra tion of 95 mL Isovue 370 IV contrast. Coronal and oblique reconstruction images were generated and re viewed. Exam utilizes a protocol for optimal evaluation of pulmonary arterial tree. Maximum intensity projections 3D imaging was utilized All CT scans are performed using dose optimization technique as appropriate and may include automated exposure control or mA/KV adjustment according to patient size. FINDINGS: A pulmonary embolus is not seen. A thoracic aortic aneurysm is not noted. A pleural effusion is not seen. A pericardial effusion is not seen. A lung consolidation is not present. Small left medial diaphragmatic hernia contains fat IMPRESSION: Negative for a pulmonary embolism.
--- NOTE | 2022-06-09 22:10 | ER ---
Nurse's Notes [facility] Name: Joana Garcia Age: 72 yrs Sex: Female : 1950 Arrival Date: 06/09/2022 Time: 18:43 Bed 27 Private MD: Diagnosis: Unstable angina;Hypertensive urgency. Presentation: 06/09 18:48 Chief complaint: Patient states: she is having a sharp pain on the right side of her ap3 chest approx every 30 seconds that started at 1820 this evening. patient denies any NV. patient states the patient does not radiate. Coronavirus screen: At this time, the client does not indicate any symptoms associated with coronavirus-19. Ebola Screen: No symptoms or risks identified at this time. Initial Sepsis Screen: Does the patient meet any 2 criteria? No. Patient's initial sepsis screen is negative. Does the patient have a suspected source of infection? No. Patient's initial sepsis screen is negative. Risk Assessment: Do you want to hurt yourself or someone else? Patient reports no desire to harm self or others. Onset of symptoms was June 09, 2022 at 18:20. 18:48 Method Of Arrival: Ambulatory ap3 18:51 Acuity: CAIO 2 ap3 Triage Assessment: 18:52 General: Appears distressed, Behavior is cooperative. Pain: Complains of pain in ap3 anterior aspect of right upper chest Pain currently is 7 out of 10 on a pain scale. Quality of pain is described as sharp, Pain began 30 min ago. Neuro: Level of Consciousness is awake, alert, obeys commands, Oriented to person, place, time, situation, Speech is normal. Cardiovascular: Reports chest pain. Respiratory: Airway is patent Respiratory effort is even, unlabored, Respiratory pattern is regular, symmetrical. Historical: - Allergies: 18:50 Sulfa (Sulfonamide Antibiotics); ap3 18:50 Prednisone; ap3 - PMHx: 18:50 Diabetes - NIDDM; Hypertension; Hypothyroidism; ap3 - Immunization history:: Client reports having NOT received the Covid vaccine. Flu vaccine is not up to date. - Social history:: Smoking status: Patient denies any tobacco usage or history of. - Family history:: not pertinent. Screenin:51 Abuse screen: Denies threats or abuse. Nutritional screening: No deficits noted. ap3 Tuberculosis screening: No symptoms or risk factors identified. 20:30 [facility] ED Fall Risk Assessment (Adult) History of falling in the last 3 months, ph including since admission No falls in past 3 months (0 pts) Confusion or Disorientation No (0 pts) Intoxicated or Sedated No (0 pts) Impaired Gait No (0 pts) Mobility Assist Device Used No (0 pt) Altered Elimination Yes (1 pt) Score/Fall Risk Level 0 - 2 = Low Risk Oriented to surroundings, Maintained a safe environment, Educated pt \T\ family on fall prevention, incl call for assistance when getting out of bed. Assessment: 18:51 Pain: Pain does not radiate. ap3 21:54 Reassessment: Patient and/or family updated on plan of care and expected duration. Pain vc1 level reassessed. Patient is alert, oriented x 3, equal unlabored respirations, skin warm/dry/pink. Patient states symptoms have improved. Pain: Denies pain. 23:00 Reassessment: Patient and/or family updated on plan of care and expected duration. Pain vc1 level reassessed. Patient is alert, oriented x 3, equal unlabored respirations, skin warm/dry/pink. Patient denies pain at this time. Patient states feeling better. Patient states symptoms have improved. 23:00 Pain: Denies pain. vc1 Vital Signs: 18:48 Pulse 71; Resp 18; Temp 97.8; Pulse Ox 98% ; Weight 83.91 kg; Pain 6/10; ap3 18:51 BP 209 / 86; ap3 20:29 BP 182 / 65; Pulse 65; Resp 14; Pulse Ox 99% ; ph 21:54 BP 132 / 69; Pulse 62; Resp 13; Pulse Ox 98% on R/A; vc1 21:56 BP 132 / 69; Pulse 62; vc1 21:56 BP 132 / 69; Pulse 62; vc1 23:00 BP 120 / 59; Pulse 59; Resp 16; Pulse Ox 98% on R/A; vc1 18:48 Pain Scale: Adult ap3 ED Course: 18:43 Patient arrived in ED. mr 18:51 Triage completed. ap3 18:51 Patient maintains SpO2 saturation greater than 95% on room air. ap3 18:51 Arm band placed on left wrist. ap3 19:00 Inserted saline lock: 20 gauge in left antecubital area, using aseptic technique. Blood ap3 collected. 19:00 Initial lab(s) drawn, by me, sent to lab. ap3 19:08 Luis Olguin MD is Attending Physician. sp4 19:31 Adenike Carter, MIRNA is Primary Nurse. iw 19:35 XRAY Chest (1 view) In Process Unspecified. EDMS 20:30 Patient has correct armband on for positive identification. Placed in gown. Bed in low ph position. Call light in reach. Client placed on continuous cardiac and pulse oximetry monitoring. NIBP monitoring applied. 21:21 CT Chest For PE Angio In Process Unspecified. EDMS 22:08 Dell Vazquez MD is Hospitalizing Provider. sp4 23:30 No provider procedures requiring assistance completed. vc1 23:30 Patient admitted, IV remains in place. vc1 Administered Medications: 20:23 Drug: Ondansetron IVP 4 mg Route: IVP; Site: left antecubital; ph 21:55 Follow up: Response: No adverse reaction; Marked relief of symptoms vc1 20:24 Drug: cloNIDine PO 0.1 mg Route: PO; ph 21:56 Follow up: BP 132 / 69; Pulse 62 bpm; Response: No adverse reaction; Marked relief of vc1 symptoms; Blood pressure is lowered 20:24 Drug: morphine IVP or IV 2 mg Route: IVP; Infused Over: 4 mins; Site: left antecubital; ph 21:55 Follow up: Response: No adverse reaction; Marked relief of symptoms vc1 21:56 Follow up: BP 132 / 69; Pulse 62 bpm vc1 20:29 Drug: Aspirin PO Chewable Tablet 324 mg Route: PO; ph 21:55 Follow up: Response: No adverse reaction; Marked relief of symptoms vc1 Medication: 18:51 VIS not applicable for this client. ap3 Outcome: 22:09 Decision to Hospitalize by Provider. sp4 23:30 Admitted to ER Hold. [facility]. vc1 23:30 Condition: good 23:30 Instructed on the need for admit. 04 12:38 Patient left the ED. Signatures: Dispatcher [employer] EDOH Radha Collado mr Adenike Carter RN RN Shannon Rees RN RN Tawnya Mcclellan RN RN Narda Kevin RN RN ap3 Brianna Valdovinos RN RN vc1 Luis Olguin, MD IQBAL sp4
--- NOTE | 2022-06-09 22:10 | EDPHYS ---
Physician Documentation [facility] Name: Joana Garcia Age: 72 yrs Sex: Female : 1950 Arrival Date: 06/09/2022 Time: 18:43 Bed 27 Private MD: ED Physician Luis Olguin HPI: 06/09 19:08 This 72 yrs old Female presents to ER via Ambulatory with complaints of Chest sp4 Pain. 21:08 72-year-old female with a history of diabetes type 2, hypercholesterolemia, and sp4 hypertension, presents with acute onset of right-sided atypical nonexertional stabbing chest pain starting at 6:20 PM. Patient denied shortness of breath or diaphoresis. Patient reported her pressure was elevated at home 147/72. At home patient takes ramipril and Crestor and also Janumet for diabetes. Patient's physician is Dr. George Baker and patient is also seeing otolaryngology physician in [place] in the past for prior work-ups. At this time pain is mild and persistent. . Historical: - Allergies: 18:50 Sulfa (Sulfonamide Antibiotics); ap3 18:50 Prednisone; ap3 - PMHx: 18:50 Diabetes - NIDDM; Hypertension; Hypothyroidism; ap3 - Immunization history:: Client reports having NOT received the Covid vaccine. Flu vaccine is not up to date. - Social history:: Smoking status: Patient denies any tobacco usage or history of. - Family history:: not pertinent. ROS: 21:08 Constitutional: Negative for fever, chills, and weight loss, Eyes: Negative for injury, sp4 pain, redness, and discharge, ENT: Negative for injury, pain, and discharge, Neck: Negative for injury, pain, and swelling, Cardiovascular: Negative for palpitations, and edema, positive for chest pain right-sided nonexertional atypical Respiratory: Negative for shortness of breath, cough, wheezing, and pleuritic chest pain, Abdomen/GI: Negative for abdominal pain, nausea, vomiting, diarrhea, and constipation, Back: Negative for injury and pain, : Negative for injury, bleeding, discharge, and swelling, MS/Extremity: Negative for injury and deformity, Skin: Negative for injury, rash, and discoloration, Neuro: Negative for headache, weakness, numbness, tingling, and seizure, Psych: Negative for depression, anxiety, Allergy/Immunology: Negative for hives, rash, and allergies Endocrine: Negative for neck swelling, polydipsia, polyuria, polyphagia, and weight changes Hematologic/Lymphatic: Negative for swollen nodes, abnormal bleeding, and unusual bruising Exam: 21:08 Constitutional: This is a well developed, well nourished patient who is awake, alert, sp4 and in no acute distress. Head/Face: Normocephalic, atraumatic. Eyes: Pupils equal round and reactive to light, extra-ocular motions intact. Lids and lashes normal. Conjunctiva and sclera are not injected. Cornea within normal limits. Periorbital areas with no swelling, redness, or edema. ENT: Nares patent. No nasal discharge, no septal abnormalities noted. Tympanic membranes are normal and external auditory canals are clear. Oropharynx with no redness, swelling, or masses, exudates, or evidence of obstruction, uvula midline. Mucous membranes moist. Neck: Trachea midline, no thyromegaly or masses palpated, and no cervical lymphadenopathy. Supple, full range of motion without nuchal rigidity, or vertebral point tenderness. No Meningismus. Chest/axilla: Normal chest wall appearance and motion. Nontender with no deformity. No lesions are appreciated. Cardiovascular: Regular rate and rhythm with a normal S1 and S2. No gallops, murmurs, or rubs. Normal PMI, no JVD. No pulse deficits. Respiratory: Lungs have equal breath sounds bilaterally, clear to auscultation and percussion. No rales, rhonchi or wheezes noted. No increased work of breathing, no retractions or nasal flaring. Abdomen/GI: Soft, non-tender, with normal bowel sounds. No distension or tympany. No guarding or rebound. No evidence of tenderness throughout. Back: No spinal tenderness. No costovertebral tenderness. Skin: Warm, dry with normal turgor. Normal color with no rashes, no lesions, and no evidence of cellulitis. MS/ Extremity: Pulses equal, no cyanosis. Neurovascular intact. Full, normal range of motion. Neuro: Awake and alert, GCS 15, oriented to person, place, time, and situation. Cranial nerves II-XII grossly intact. Motor strength 5/5 in all extremities. Sensory grossly intact. Psych: Awake, alert, with orientation to person, place and time. Behavior, mood, and affect are within normal limits 21:08 ECG was reviewed by the Attending Physician. EKG time 194 normal sinus rhythm at sp4 the rate of 59, no ST elevation or depression, no ectopy, overall normal EKG Vital Signs: 18:48 Pulse 71; Resp 18; Temp 97.8; Pulse Ox 98% ; Weight 83.91 kg; Pain 6/10; ap3 18:51 BP 209 / 86; ap3 20:29 BP 182 / 65; Pulse 65; Resp 14; Pulse Ox 99% ; ph 21:54 BP 132 / 69; Pulse 62; Resp 13; Pulse Ox 98% on R/A; vc1 21:56 BP 132 / 69; Pulse 62; vc1 21:56 BP 132 / 69; Pulse 62; vc1 23:00 BP 120 / 59; Pulse 59; Resp 16; Pulse Ox 98% on R/A; vc1 18:48 Pain Scale: Adult ap3 MDM: 19:47 Patient medically screened. sp4 21:12 Differential diagnosis: abnormal EKG, acute myocardial infarction, acute pericarditis, sp4 anxiety, coronary artery disease chest wall pain, congestive heart failure cholecystitis, Cholelithiasis. HEART Score: History: Moderately Suspicious (1), ECG: Normal (0), Age: > or = 65 years (2), Risk Factors: > or = 3 Risk factors for atherosclerotic disease (2), Troponin: < or = 1 x Normal Limit (0), Total Score = 5. The patient was given aspirin in the Emergency Department. Data reviewed: vital signs, nurses notes, old medical records, lab test result(s), EKG, radiologic studies, CT scan, plain films. ED course: Patient's primary MD requested CTA of the chest to rule out pulmonary embolus. 22:08 Data reviewed: radiologic studies. ED course: CT angio is negative for pulmonary sp4 emboli, patient is stable for admission for rule out ACS and further assessment by Cardiology. 06/09 19:00 Order name: Basic Metabolic Panel; Complete Time: 20:06 ap3 06/09 19:00 Order name: CBC with Diff; Complete Time: 20:06 ap3 06/09 19:00 Order name: Troponin HS; Complete Time: 20: ap3 06/09 19:08 Order name: LFT's; Complete Time: 23:36 sp4 06/10 01:28 Order name: Urinalysis w/ reflexes EDMS 06/10 03:07 Order name: Troponin High Sensitivity EDMS 06/10 11:36 Order name: Glucose, Ancillary Testing EDMS 06/10 12:04 Order name: Troponin High Sensitivity EDMS 06/09 19:00 Order name: XRAY Chest (1 view); Complete Time: 20:06 ap3 06/09 20:07 Order name: CT Chest For PE Angio; Complete Time: 22:00 sp4 06/10 09:40 Order name: NM EDMS 06/09 19:00 Order name: EKG; Complete Time: 19:00 ap3 06/09 19:00 Order name: Cardiac monitoring; Complete Time: 20:30 ap3 06/09 19:00 Order name: EKG - Nurse/Tech; Complete Time: 19:59 ap3 06/09 19:00 Order name: IV Saline Lock; Complete Time: 19:00 ap3 06/09 19:00 Order name: Labs collected and sent; Complete Time: 19:00 ap3 06/09 19:00 Order name: O2 Per Protocol; Complete Time: 19:59 ap3 06/09 19:00 Order name: O2 Sat Monitoring; Complete Time: 19:59 ap3 EC:08 Rate is 59 beats/min. Rhythm is regular, Normal Sinus Rhythm. QRS [place] is Normal. [place] sp4 interval is normal. QRS interval is normal. QT interval is normal. T waves are Normal. No ST changes noted. Clinical impression: Normal ECG. Interpreted by me. Administered Medications: 20:23 Drug: Ondansetron IVP 4 mg Route: IVP; Site: left antecubital; ph 21:55 Follow up: Response: No adverse reaction; Marked relief of symptoms vc1 20:24 Drug: cloNIDine PO 0.1 mg Route: PO; ph 21:56 Follow up: BP 132 / 69; Pulse 62 bpm; Response: No adverse reaction; Marked relief of vc1 symptoms; Blood pressure is lowered 20:24 Drug: morphine IVP or IV 2 mg Route: IVP; Infused Over: 4 mins; Site: left antecubital; ph 21:55 Follow up: Response: No adverse reaction; Marked relief of symptoms vc1 21:56 Follow up: BP 132 / 69; Pulse 62 bpm vc1 20:29 Drug: Aspirin PO Chewable Tablet 324 mg Route: PO; ph 21:55 Follow up: Response: No adverse reaction; Marked relief of symptoms vc1 Disposition Summary: 06/09/22 22:09 Hospitalization Ordered Hospitalization Status: Observation sp4 Provider: Dell Vazquez sp4 Condition: Stable sp4 Problem: new sp4 Symptoms: have improved sp4 Bed/Room Type: Standard sp4 Location: [facility] ER HOLD(06/09/22 23:55) Room Assignment: ERHOLD-(06/09/22 23:55) cg Diagnosis - Unstable angina sp4 - Hypertensive urgency. sp4 Forms: - Medication Reconciliation Form sp4 - SBAR form sp4 Signatures: Dispatcher [employer] EDTawnya Rodriguez RN RN ph Rama Fong RN RN cg Narda Kevin RN RN ap3 Luis Olguin MD MD sp4 Brianna Valdovinos RN vc1 Corrections: (The following items were deleted from the chart) 23:55 22:09 Telemetry/MedSurg (observation) sp4 cg 23:55 22:09 sp4 cg
[2022-06-09 22:12] LABS: Albumin 4.1 g/dL (3.4-5.0); Bilirubin Direct 0.2 mg/dL (0-0.2); Bilirubin Total 0.5 mg/dL (0.2-1.0); Protein, Total 7.7 g/dL (6.4-8.2)
[2022-06-09] MEDS ORDERED: GLUCAGON 1 MG/VIAL IM PRN (22:55)
[2022-06-09] MEDS ORDERED: D50W 25 GM/50 ML SYRINGE IV PRN (22:55)
[2022-06-09] MEDS ORDERED: D10W 125 ML IV PRN (23:47)
[2022-06-10 00:28] VITALS: BMI 31.7
[2022-06-10 01:28] LABS: Specific Gravity 1.005 (1.005-1.030); Urine Bacteria None Seen /HPF (<20); Urine Bilirubin NEGATIVE (Negative); Urine Blood Negative (Negative); Urine Clarity Clear (Clear); Urine Color Light-Yellow (Yellow); Urine Glucose NEGATIVE (Negative); Urine Mucus Slight /HPF (None Seen); Urine Protein NEGATIVE (Negative); Urine RBC None Seen /HPF (None Seen); Urine Urobilinogen Normal (Normal)
[2022-06-10] MEDS: INSULIN -REGULAR HUMAN 50 UNIT/0.5 ML ML SQ SCH ×2 (07:30→11:30)
[2022-06-10] MEDS ORDERED: ramipriL 5 MG CAP PO SCH (09:00)
[2022-06-10] MEDS ORDERED: ASPIRIN EC 81 MG TAB PO SCH (09:00)
[2022-06-10] MEDS ORDERED: ASPIRIN EC 81 MG TAB PO ONE (09:11)
--- NOTE | 2022-06-10 09:40 | RAD REPORT ---
EXAM DESCRIPTION: NM - Rest Stress Cardiac Imaging - 06/10/2022 9:06 am CLINICAL HISTORY: ELEVATED TROPONIN COMPARISON: None. TECHNIQUE: The patient was administered 11.8 mCi of Tc 99m Sestamibi prior to resting SPECT imaging of the heart. The patient was then administered 34.7 MCi of Tc 99m Sestamibi following exercise or ph armacologic stress. Multiplanar SPECT images were reviewed. FINDINGS: There is uniformity of radiotracer uptake involving the entire left ventricular myocardiu m on rest and stress images. The left ventricular ejection fraction equals 71% IMPRESSION: Negative for a myocardial perfusion defect
[2022-06-10 12:53] VITALS: O2SAT 98
[2022-06-10 13:08] VITALS: BP 156/65; TEMP 97.9
--- NOTE | 2022-06-11 04:45 | EKG ---
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
--- NOTE | 2022-06-11 08:03 | ECHO ---
HEIGHT: 5 ft 4 in WEIGHT: 184 lb 15.838 oz DATE OF STUDY: 06/10/[address]: Dell Vazquez MD 2-DIMENSIONAL: YES M.MODE: YES DOPPLER: YES COLOR FLOW: YES TDS: PORTABLE: YES DEFINITY: BUBBLE STUDY: DIAGNOSIS: CHEST PAIN CARDIAC HISTORY: CATHERIZATION: NO SURGERY: NO PROSTHETIC VALVE: NO PACEMAKER: NO MEASUREMENTS (cm) DIASTOLIC (NORMALS) SYSTOLIC (NORMALS) IVSd 1.1 (0.6-1.2) LA Diam 2.4 (1.9-4.0) LVEF 67% LVIDd 3.5 (3.5-5.7) LVIDs 2.2 (2.0-3.5) %FS 37% LVPWd 1.1 (0.6-1.2) Ao Diam 2.0 (2.0-3.7) 2 DIMENSIONAL ASSESSMENT: RIGHT ATRIUM: NORMAL LEFT ATRIUM: NORMAL RIGHT VENTRICLE: NORMAL LEFT VENTRICLE: NORMAL TRICUSPID VALVE: NORMAL MITRAL VALVE: NORMAL PULMONIC VALVE: NORMAL AORTIC VALVE: NORMAL PERICARDIAL EFFUSION: NONE AORTIC ROOT: NORMAL LEFT VENTRICULAR WALL MOTION: NORMAL DOPPLER/COLOR FLOW: MILD TRICUSPID REGURGITATION COMMENTS: 1. MILD TRICUSPID REGURGITATION 2. NORMAL LEFT VENTRICULAR SIZE AND FUNCTION 3. NO WALL MOTION ABNORMALITY 4. NO EFFUSION TECHNOLOGIST: BRUNO FOX
--- NOTE | 2022-06-11 09:09 | TREADPHA ---
DX: ELEVATED TROPONIN Date of Study: 06/10/2022 Ht: 5' 4 " Wt: 184 lb 15.838 oz Consulting Physician: CINDY MEDICATIONS: ASPIRIN, GLUCAGEN, NOVOLIN-R, ALTACE HISTORY: HYPERTENSION, HYPERLIPIDEMIA, HISTORY OF LEAKY VALVES, THYROID, DIABETES MELLITUS PHYSICIAL EXAMINATION: RESTING B.P.: 137/73 RESTING H.R.: 53 RESTING EKG: NORMAL PROTOCOL: PHARMACOLOGIC EXERCISE TIME: 3:30 B.P. AT [facility] STRESS: 174/66 IMPRESSION: [place] STRESS TEST PERFORMED ORDERED. CARDIOLITE INJECTED PER PROTOCOL. NO VENTRICULAR TACHYCARDIA, SUPRAVENTRICULAR TACHYCARDIA NOTED. NO SHORTNESS OF BREATH OR ARRHYTHMIAS. SEE NUCLEAR MEDICINE REPORT.
--- NOTE | 2022-08-08 19:05 | SS ---
Date of Admission: 06/10/2022 Date of Discharge: 06/10/2022 Chief Complaint: Chest pain. History Of Present Illness: This is a 72-year-old, very pleasant female patient, came into emergency room with right-sided chest pain. She denies any fall, injury. No rash. No cough, cold, congestion. No hemoptysis. No shortness of breath, nausea, vomiting, or diaphoresis. No aggravating or relieving factors. After she came into emergency room, she was evaluated and admitted to the hospital. When I saw her this morning, she was asymptomatic. Allergies: SULFA CAUSING RASH, PREDNISONE CAUSING LEG CRAMPS, AND CLINDAMYCIN CAUSING RASH AND ITCHING. Medications: Levothyroxine 75 mcg daily, Janumet XR 100/1000 mg takes 1 tablet by mouth daily in the evening with meal, ramipril 10 mg 2 times a day, rosuvastatin 5 mg 2 times a week. Review of Systems: Cardiovascular: As mentioned above. All other systems reviewed and negative. Past Medical History: Significant for allergic rhinitis, hypertension, hyperlipidemia, type 2 diabetes mellitus, hypothyroidism, and kidney stone. Past Surgical History: Significant for hiatal hernia repair, rectocele repair, lithotripsy on 11/29/2018 for kidney stone, hysterectomy. Prior to hysterectomy, the patient had D and C, and cystocele repair. Family History: Father had colon cancer mother had COPD and lupus. Brother and had ALS. Social History: Negative for smoking and alcohol use. Physical Examination: Vital Signs: When the patient first came in to ER, temperature 97.8, pulse 71, respiratory rate 18, blood pressure 209/86, oxygen saturation 98%. Height 5 feet 4 inches, weight 184 pounds. Last vital signs today, temperature 97.9, pulse 58, respiratory rate 13, blood pressure 156/65, oxygen saturation 97%. General: Awake, alert, oriented, not in distress. HEENT: Head atraumatic, normocephalic. Conjunctivae nonerythematous. Sclerae white. Mouth, no thrush or edema noted. Ears/Nose, no mass, lesion, discharge noted. Neck: Supple. No JVD, lymph nodes, bruit, thyromegaly noted. Lungs: Bilateral good equal air entry. Clear to auscultation. No rhonchi. No rales. Heart: Normal heart sounds, no murmur or gallop. Abdomen: Soft, bowel sounds normal. No guarding, rigidity, tenderness, mass, hepatosplenomegaly, distention, or bruit noted. Extremities: No leg edema. No calf tenderness. Skin: No rash, ulcer, cellulitis. Lymphatics: No lymph node enlargement in neck, supraclavicular, infraclavicular region. Neuro: No focal neurological deficit. Chest: Unremarkable. External Genitalia: Deferred. Rectal: Deferred. Laboratory Data: White count 6.6, hemoglobin 13.5, platelets 234. Sodium 137, potassium 3.9, chloride 106, bicarb 27, BUN 18, creatinine 0.89. Glucose 107. Liver function tests unremarkable. Initial troponin 5.9, second troponin 7.1, third troponin 5.9. Urinalysis was normal. Chest x-ray, no acute cardiopulmonary changes. EKG normal sinus rhythm. No acute ST-T changes. CAT scan of the chest per PE protocol was negative for pulmonary embolism. Nuclear stress test done today was negative for any stress-induced ischemia. Echocardiogram showed normal ejection fraction and was unremarkable. Hospital Course: After patient was evaluated in the emergency room, she was admitted to the hospital. Her AL was ruled out and after cardiac workup was completed, the patient was discharged to go home in stable condition. Discharge Medications And Instructions: 1. Continue all prior home medications. 2. Take Motrin 200 mg 2 tablets by mouth 2 times a day with food for 1 week. 3. Follow up at my office as per her scheduled appointment. Final Diagnoses: 1. Chest pain. 2. Type 2 diabetes mellitus. 3. Hypertension. 4. Hyperlipidemia. 5. Allergic rhinitis. VIRI/MODL Voice ID: [id number] Report ID: [id number] RADHA
== END 2022-06-10 13:03 | disposition home or self-care (01) ==
LOC: ER 18:41 → ERHOLD 22:03
PROVIDERS: ADMIT Internal Medicine; ATTEND Internal Medicine
DX: R07.9 Chest pain, unspecified (principal); E78.5 Hyperlipidemia, unspecified; E11.9 Type 2 diabetes mellitus without complications; E03.9 Hypothyroidism, unspecified; N20.0 Calculus of kidney; J30.9 Allergic rhinitis, unspecified; Z80.0 Family history of malignant neoplasm of digestive organs; Z88.3 Allergy status to other anti-infective agents; Z88.2 Allergy status to sulfonamides
CPT/HCPCS: 93005; 93017; 93306; 85025; 81001; 80048; 36415; 82947; 80076; 84484 ×3; 71275; 71045; 78452; 96375; 96374; 99285; Q9967; J2785; J2270; J2405; A9500; G0378 ×3